=== PATIENT | male | born 1945 | race Caucasian/White ===

== ENCOUNTER 2022-05-13 11:25 | Emergency (ER) | payer MEDICARE, SELFPAY ==
[2022-05-13 11:38] VITALS: BP 127/70; PULSE 87; RESP 20; TEMP 35.8; O2SAT 100
--- NOTE | 2022-05-13 11:58 | ED.GENADULT ---
HPI - General Adult General Chief complaint: Extremity Problem,Nontraumatic Stated complaint: Hands Swollen/Pain Time Seen by Provider: 05/13/22 11:58 Source: patient and RN notes reviewed Mode of arrival: ambulatory Limitations: no limitations History of Present Illness HPI narrative: 76-year-old male presents to the [facility] with a swollen joint to the right hand. States that it feels like his normal gout flare. Tried calling his kidney transplant team at [place] and they told him to come to the [facility]. Pain, redness and swelling noted to the right second MCP joint Related Data Home Medications Medication Instructions Recorded Confirmed finasteride 5 mg tablet 5 mg PO DAILY 05/13/22 05/13/22 hydralazine 25 mg tablet 25 mg PO DAILY 05/13/22 05/13/22 mycophenolate sodium 360 mg 360 mg PO DAILY 05/13/22 05/13/22 tablet,delayed release prednisone 5 mg tablet 5 mg PO DIRECTED 05/13/22 05/13/22 pyridoxine (vitamin B6) 50 mg 50 mg PO DAILY 05/13/22 05/13/22 tablet tacrolimus 1 mg tablet,extended 1 mg PO DAILY 05/13/22 05/13/22 release 24 hr (Envarsus XR) tamsulosin 0.4 mg capsule 0.4 mg PO DAILY 05/13/22 05/13/22 Allergies Allergy/AdvReac Type Severity Reaction Status Date / Time No Known Allergies Allergy Unverified 02/15/13 14:04 Review of Systems Review of Systems: All systems reviewed & are unremarkable except as noted in HPI and below Constitutional: Constitutional: Reports no additional constitutional complaints, Denies chills and Denies fever(s) Eyes: Eyes: Reports no additional eye complaints ENT: Reports system reviewed and no additional complaints, except as documented Cardiovascular: Cardiovascular: Reports no additional cardiovascular complaints Respiratory: Respiratory: Reports no additional respiratory complaints Gastrointestinal: Gastrointestinal: Reports no additional gastrointestinal complaints Musculoskeletal: Musculoskeletal: Reports as per HPI Integumentary/Breasts: Skin/Breast: Reports as per HPI Neurologic: Reports system reviewed and no additional complaints, except as documented Psychiatric: Psychiatric: Reports no additional psychiatric complaints Allergic/Immunologic: Allergic/Immunologic: Reports no additional allergic/immunologic complaints [facility] Surgical History Surgical History (Updated 05/13/22 @ 20:10 by Pricila A. Topper, WARES SORTER) Kidney transplanted Social History Social History (Updated 05/13/22 @ 20:10 by Pricila Garcia APRN) Gender identity (if verbalized by the patient): Male Comments At the time of my signature, I reviewed and agree with the nursing past medical, surgical, social, and family history. There is no relevant family history pertinent to the patient complaint. Exam Const: General: no acute distress, alert, ill appearing chronically; not acutely and well nourished Nutritional Appearance: well nourished Orientation/consciousness: patient oriented x3 Limitations: no limitations HENMT: Head: normal to inspection Ears: external ears normal Eyes: General: appearance normal, both eyes and all related structures Pupils: Equal, round and reactive pupils present Neck: Neck: normal visual inspection, no lymphadenopathy and no meningeal signs Chest: Chest palpation & inspection: normal inspection of the chest Resp: Effort & Inspection: normal respiratory effort and no use of accessory muscles Auscultation: clear to auscultation bilaterally and no wheezes Cardio: Rate: regular rate Rhythm: regular rhythm Skin: General skin exam: normal color Rashes: no rashes Wounds: no wounds Other: Redness noted to the second MCP right hand, swelling, tenderness. Neuro: General: patient oriented x3, moves all extremities, no meningeal signs and no focal motor deficits Cranial nerves: Yes Equal, round and reactive pupils present Speech: normal speech Gait exam (Neuro): Normal gait present Extrem: General: normal to inspection, full ROM an
== END 2022-05-13 12:20 | disposition home or self-care (01) ==
PROVIDERS: Emergency Provider Nurse Practitioner
DX: M10.9 Gout, unspecified (principal); Z94.0 Kidney transplant status
CPT/HCPCS: 99213; G0463

== ENCOUNTER 2022-05-20 11:49 | Emergency (ER) | payer MEDICARE, SELFPAY ==
[2022-05-20 12:09] VITALS: BP 129/63; PULSE 69; RESP 16; TEMP 36.2; O2SAT 100
--- NOTE | 2022-05-20 12:39 | ED.EXTPRO ---
HPI - Extremity Problem General Chief complaint: Extremity Injury, Upper Stated complaint: felicia wrist pain Time Seen by Provider: 05/20/22 12:39 Source: patient, RN notes reviewed and old records reviewed Mode of arrival: ambulatory Limitations: no limitations History of Present Illness HPI Narrative: 76-YEAR-OLD MALE RETURNS TO THE [facility] WITH COMPLAINTS OF BILATERAL WRIST PAIN. DIAGNOSED WITH GOUT 1 WEEK AGO, DID NOT FOLLOW UP WITH HIS KIDNEY TRANSPLANT TEAM. No redness or swelling noted. States he woke up with the pain. No treatment prior to arrival. Unknown lab values. Does not have a primary care provider Related Data Home Medications Medication Instructions Recorded Confirmed finasteride 5 mg tablet 5 mg PO DAILY 05/13/22 05/20/22 hydralazine 25 mg tablet 25 mg PO DAILY 05/13/22 05/20/22 mycophenolate sodium 360 mg 360 mg PO DAILY 05/13/22 05/20/22 tablet,delayed release prednisone 5 mg tablet 5 mg PO DIRECTED 05/13/22 05/20/22 pyridoxine (vitamin B6) 50 mg 50 mg PO DAILY 05/13/22 05/20/22 tablet tacrolimus 1 mg tablet,extended 1 mg PO DAILY 05/13/22 05/20/22 release 24 hr (Envarsus XR) tamsulosin 0.4 mg capsule 0.4 mg PO DAILY 05/13/22 05/20/22 Allergies Allergy/AdvReac Type Severity Reaction Status Date / Time No Known Allergies Allergy Verified 05/20/22 12:15 Review of Systems Review of Systems: All systems reviewed & are unremarkable except as noted in HPI and below Constitutional: Constitutional: Reports no additional constitutional complaints, Denies chills and Denies fever(s) Eyes: Eyes: Reports no additional eye complaints ENT: Reports system reviewed and no additional complaints, except as documented Cardiovascular: Cardiovascular: Reports no additional cardiovascular complaints Respiratory: Respiratory: Reports no additional respiratory complaints Gastrointestinal: Gastrointestinal: Reports no additional gastrointestinal complaints Musculoskeletal: Musculoskeletal: Reports as per HPI and Reports arthralgias (Bilateral wrists) Integumentary/Breasts: Skin/Breast: Reports system reviewed and no additional complaints, except as docu Neurologic: Reports system reviewed and no additional complaints, except as documented Psychiatric: Psychiatric: Reports no additional psychiatric complaints Allergic/Immunologic: Allergic/Immunologic: Reports no additional allergic/immunologic complaints [facility] Surgical History Surgical History Kidney transplanted Social History Social History Gender identity (if verbalized by the patient): Male Comments At the time of my signature, I reviewed and agree with the nursing past medical, surgical, social, and family history. There is no relevant family history pertinent to the patient complaint. Exam Const: General: no acute distress, alert, ill appearing chronically and well nourished Nutritional Appearance: well nourished Orientation/consciousness: patient oriented x3 Limitations: no limitations HENMT: Head: normal to inspection Ears: external ears normal Eyes: General: appearance normal, both eyes and all related structures Conjunctivae: conjunctivae normal Pupils: Equal, round and reactive pupils present Neck: Neck: normal visual inspection, no lymphadenopathy and no meningeal signs Chest: Chest palpation & inspection: normal inspection of the chest Resp: Effort & Inspection: normal respiratory effort and no use of accessory muscles Auscultation: clear to auscultation bilaterally, no crackles, no rales, no rhonchi and no wheezes Cardio: Rate: regular rate Rhythm: regular rhythm Skin: General skin exam: normal color Rashes: no rashes Wounds: no wounds Neuro: General: patient oriented x3, moves all extremities, no meningeal signs and no focal motor deficits Cranial nerves: Yes Equal, round and reactive pupils present
== END 2022-05-20 12:54 | disposition home or self-care (01) ==
PROVIDERS: Emergency Provider Nurse Practitioner
DX: M19.032 Primary osteoarthritis, left wrist (principal); M19.031 Primary osteoarthritis, right wrist; Z94.0 Kidney transplant status; E78.00 Pure hypercholesterolemia, unspecified; N40.0 Benign prostatic hyperplasia without lower urinary tract symptoms; M10.9 Gout, unspecified; Z90.5 Acquired absence of kidney
CPT/HCPCS: 99212; G0463

== ENCOUNTER 2022-05-24 11:28 | Inpatient (IN) | payer MEDICARE, SELFPAY ==
[2022-05-24] VITALS (18 sets, daily range): BP systolic 113–145; BP diastolic 51–118; PULSE 60–78; RESP 11–20; TEMP 35.8–36.5; O2SAT 96–100
--- NOTE | ~2022-05-24 | US_ITS ---
EXAMINATION: US renal BI DATE: 05/25/2022 08:50 INDICATION: Acute renal insufficiency TECHNIQUE: Multiple ultrasound grayscale images of the kidneys were obtained. COMPARISON: None. FINDINGS: The right kidney measures 7.0 x 4.1 x 4.1 cm. And demonstrates increased cortical echogenicity There are multiple small anechoic cysts in the right kidney the largest measuring 1.8 cm in maximal diamete r. The left kidney is unable to be visualized due to large amount of shadowing bowel gas. The left si de of the abdomen. A right pelvic transplant kidney measures 10.9 x 4.9 x 5.4 cm with normal cortical echogenicity. There is mild hydronephrosis of the transplant kidney. No renal stones identified. Pro minent distention of the bladder which measures approximately 14 x 10.5 x 9.0 cm. Prostatomegaly jason uring at least 4.6 x 3.9 cm. IMPRESSION: 1. Mild hydronephrosis at the right pelvic transplant kidney along with prominent distention of the bladder, both findings which could be secondary to lateral with obstruction from the enlarged prostat e.. 2. A few cysts in an atrophic anvik right kidney. The anvik left kidney is not visualized. Reviewed, dictated and finalized at location B. IMPRESSION: 1. Mild hydronephrosis at the right pelvic transplant kidney along with promin ent distention of the bladder, both findings which could be secondary to latera l with obstruction from the enlarged prostate.. 2. A few cysts in an atrophic anvik right kidney. The anvik left kidney is no t visualized.
--- NOTE | ~2022-05-24 | CT_ITS ---
EXAMINATION: CT diagnostic chest wo con DATE: 05/24/2022 20:41 INDICATION: lung mass TECHNIQUE: Computed tomography (CT) of the chest was performed without intravenous contrast. Automate d exposure control and iterative reconstruction technique were employed. The dose-length product was 145.04 mGy-cm. COMPARISON: Chest x-ray, same date. FINDINGS: CHEST: Thoracic aorta: Mild ectasia and arch calcification. Lung parenchyma and airways: Calcified right middle lobe granulomas. Irregular somewhat nodular opaci ty along the superior margin of the right major fissure, corresponding with the opacity in the prior radiograph, likely representing scar or a lymph node. Thoracic inlet, axillae and chest wall: No thyroid or soft tissue mass. No axillary lymphadenopathy. Mediastinum: No mass or lymphadenopathy. Heart and pericardium: Normal heart size. No pericardial effusion. Coronary artery calcifications: Moderate. Pleura: No effusion or mass. Upper abdomen: Cholecystectomy. Bilateral renal atrophy with multiple renal cysts and lesions that ar e too small to characterize. Thoracic bones: No acute osseous finding in the chest. IMPRESSION: No acute thoracic process detected. No suspicious pulmonary nodule or mass detected. Reviewed, dictated and finalized at location K. IMPRESSION: No acute thoracic process detected. No suspicious pulmonary nodule or mass dete cted.
--- NOTE | ~2022-05-24 | XR_ITS ---
XR chest 2V DATE: 05/24/2022 13:05 INDICATION: Weight loss, weakness TECHNIQUE: PA and lateral views COMPARISON: None FINDINGS: Normal heart size. Mild aortic tortuosity. No hilar or mediastinal enlargement. There is bilateral hyperinflation consistent with chronic obstructive pulmonary disease. There is an irregular up to approximately 1.5 cm density overlying the right upper lung; CT thorax is recommended to evaluate for possible lung mass lesion/cancer. There is a radiopaque suture in the subcutaneous adipose tissues of the upper anterior right abdomina l wall. Degenerative spurring of the thoracic spine. IMPRESSION: Approximately 1.5 cm irregular opacity overlying right upper lung; recommend CT thorax to evaluate for possible lung mass/carcinoma Reviewed, dictated and finalized at location A.
--- NOTE | 2022-05-24 11:57 | ECG_ITS ---
Measurements Intervals Agency Rate: 68 P: 92 WA: 174 QRS: 74 QRSD: 110 T: 137 QT: 462 QTc: 494 Interpretive Statements SINUS RHYTHM BORDERLINE ST-T WAVE ABNORMALITY- DIFFUSE LEADS BASELINE ARTIFACT- I, II, III, AVR, AVL, AVF, V1-V4 BORDERLINE ECG NO PRIOR ECG FOR COMPARISON Electronically Signed On 05-25-2022 6:17:00 CDT by Erasmo Meeks D.O.
--- NOTE | 2022-05-24 13:55 | PC.NURSE ---
attempted to call patient to draw blood, patient was not found in waiting room
[2022-05-24 14:31] LABS: Alanine Aminotransferase 19 U/L (6-50); Albumin Level 4.2 g/dL (3.5-5.1); Alkaline Phosphatase 93 U/L (38-126); Anion Gap 19 mmol/L (8-16); Aspartate Amino Transferase 23 U/L (17-59); Bilirubin,Total 0.7 mg/dL (0.2-1.3); Blood Urea Nitrogen 49 mg/dL (9-20); Carbon Dioxide 8 mmol/L (22-30); Chloride 118 mmol/L (98-107); Estimated CRCL calculation 9 ml/min; Estimated Glomerular Filt Rate 10; Glucose 85 mg/dL (65-110); Potassium 3.1 mmol/L (3.4-5.0); Sodium 145 mmol/L (137-145)
[2022-05-24 14:32] LABS: Basophils Absolute Auto 0.1 K/mm3 (0.0-0.1); Basophils Percent Auto 0.5 % (0.2-1.2); Eosinophils Absolute Auto 0.2 K/mm3 (0-0.3); Eosinophils Percent Auto 1.3 % (0-4.4); Hematocrit 31.1 % (42.0-52.0); Hemoglobin 10.3 g/dL (14.0-18.0); Immature Granulocyte Absolute 0.23 K/mm3 (0.00-0.031); Lymphocytes Absolute Auto 0.84 K/mm3 (0.9-3.2); Lymphocytes Percent Auto 7.1 % (18.3-44.2); Mean Corpuscular HGB Conc 33.1 g/dl (32-36); Mean Corpuscular Hemoglobin 29.4 pg (26-34); Mean Corpuscular Volume 88.9 fl (80-100); Mean Platelet Volume 10.1 fl (7.4-10.4); Monocytes Absolute Auto 0.7 K/mm3 (0.1-0.6); Neutrophils Absolute Auto 9.8 K/mm3 (1.3-6.7); Neutrophils Percent Auto 83.1 % (45.5-73.1); Platelet Count Result 240 k/mm3 (150-375); White Blood Count 11.8 K/mm3 (4.5-10.0)
--- NOTE | 2022-05-24 15:44 | ED.WEAKNESS ---
HPI - Weakness General Chief complaint: Weakness Stated complaint: weight loss, body aches Time Seen by Provider: 05/24/22 15:30 History of Present Illness HPI Narrative: Pt presents with generalized weakness and weight loss. Pt says he was in the [facility] traveling and walked all over in November without problems but now can't walk across the room. Pt denies CP. Pt had a renal transplant several years ago and [facility]. Pt not sure of the name of his transplant surgeon. Pt denies black or bloody stools. Related Data Home Medications Medication Instructions Recorded Confirmed finasteride 5 mg tablet 5 mg PO DAILY 05/13/22 05/20/22 hydralazine 25 mg tablet 25 mg PO DAILY 05/13/22 05/20/22 mycophenolate sodium 360 mg 360 mg PO DAILY 05/13/22 05/20/22 tablet,delayed release prednisone 5 mg tablet 5 mg PO DIRECTED 05/13/22 05/20/22 pyridoxine (vitamin B6) 50 mg 50 mg PO DAILY 05/13/22 05/20/22 tablet tacrolimus 1 mg tablet,extended 1 mg PO DAILY 05/13/22 05/20/22 release 24 hr (Envarsus XR) tamsulosin 0.4 mg capsule 0.4 mg PO DAILY 05/13/22 05/20/22 Allergies Allergy/AdvReac Type Severity Reaction Status Date / Time No Known Allergies Allergy Verified 05/24/22 15:03 Review of Systems Review of Systems: All systems reviewed & are unremarkable except as noted in HPI and below PMFSH Surgical History Surgical History Kidney transplanted Social History Social History Gender identity (if verbalized by the patient): Male Exam Const: General: healthy appearing and no acute distress Nutritional Appearance: well nourished Orientation/consciousness: patient oriented x3 Limitations: no limitations Chest: Chest palpation & inspection: normal inspection of the chest Resp: Effort & Inspection: normal respiratory effort Auscultation: clear to auscultation bilaterally Cardio: Rate: regular rate Rhythm: regular rhythm GI: GI Palp: Yes Soft to palpation Auscultation: normal bowel sounds Skin: General skin exam: normal color Rashes: no rashes Neuro: General: patient oriented x3 and moves all extremities Cranial nerves: Yes Nystagmus not present Speech: normal speech Extrem: General: normal to inspection and no clubbing, cyanosis or edema Psych: Mental Status: mental status grossly normal Affect: normal affect Attitude: cooperative Course Course Emergency Course: discussed with dr hutchins, transplant surgeon [facility], said will accept but no b eds for 3-5 dasy, said hydrated gently and IV antiviotics and admit here until bed available. Vital Signs Vital signs: Vital Signs Temperature 96.5 F L 05/24/22 11:53 Pulse Rate 74 05/24/22 11:53 Respiratory Rate 16 05/24/22 11:53 Blood Pressure 145/118 H 05/24/22 11:53 Pulse Oximetry 100 05/24/22 11:53 Oxygen Delivery Room Air 05/24/22 11:53 Temperature 97.7 F 05/24/22 15:06 Pulse Rate 62 05/24/22 20:06 Respiratory Rate 14 05/24/22 20:06 Blood Pressure 113/51 L 05/24/22 18:42 Pulse Oximetry 99 05/24/22 20:06 Oxygen Delivery Room Air 05/24/22 14:58 MDM - Weakness Lab Data Result diagrams: 05/24/22 14:11 05/24/22 14:11 Labs: Lab Results 05/24/22 05/24/22 05/24/22 Range/Units 14:11 14:11 14:11 WBC 11.8 H (4.5-10.0) K/mm3 RBC 3.50 L (4.6-6.20) M/mm3 Hgb 10.3 L (14.0-18.0) g/dL Hct 31.1 L (42.0-52.0) % MCV 88.9 (80-100) fl MCH 29.4 (26-34) pg MCHC 33.1 (32-36) g/dl RDW 19.0 H (11.5-14.5) % Plt Count 240 (150-375) k/mm3 MPV 10.1 (7.4-10.4) fl Immature Gran % (Auto) 2.0 H (0-0.5) % Neut % (Auto) 83.1 H (45.5-73.1) % Lymph % (Auto) 7.1 L (18.3-44.2) % Meigs % (Auto) 6.0 (2.6-8.5) % Eos % (Auto) 1.3 (0-4.4) % Baso % (Auto) 0.5 (0.2-1.2) % Lymph # (Auto) 0.84 L (0.9-3.2) K/mm3 Meigs
[2022-05-24 16:40] LABS: Appearance Urine Clear (Clear); Bilirubin Urine Negative (Negative); Blood Urine 2+ (Negative); Color Urine Yellow (Yellow); Glucose Urine UA Negative (Negative); Ketones Urine Trace mg/dL (Negative); Leukocyte Esterase Ur 3+ LEU/UL (Negative); Nitrate Urine Negative (Negative); Protein Urine 2+ mg/dL (Negative); Urobilinogen Urine 0.2 mg/dL (<2.0)
[2022-05-24 16:48] LABS: Mucus Urine Rare /lpf; Squamous Epithelial Cell Urine Rare /hpf (Few); WBC Urine >75 /hpf
[2022-05-24 16:49] LABS: Add Urine Microscopic? YES
[2022-05-24] MEDS: cefTRIAXone 2 GM in SODIUM CHLORIDE 0.9% IV 100 ML 200 ML IVPB (17:53)
--- NOTE | 2022-05-24 20:09 | PM.IMHP ---
H&P: HPI History of Present Illness Date/Time: 05/24/22 20:09 Chief Complaint: Weakness Narrative: 76-year-old male with past medical history significant for renal transplant done at [facility] several years ago, hypertension, BPH is presenting with weakness and progressively worsening weight loss over the last few weeks. Patient states he has had a runny nose, sore throat and has not felt well over the last few days. His appetite has been somewhat decreased during this time period. Denies any chest pain or shortness of breath. No nausea vomiting or diarrhea. No fevers or chills. No sick contacts or recent travel. He states he gets his creatinine checked once a month but does not follow these numbers and is not sure what his baseline is. He states he last took his tacrolimus May 24, 2022 in the a.m. In the ER, He was found to have a significant acute kidney injury with a creatinine of 5.7 and a BUN of 49, unknown baseline. He also had an anemia with a hemoglobin of 10.3, also no known baseline. White blood cell count was 11.8. He had mild hypokalemia with a potassium of 3.1. urinalysis was done and was positive for protein, blood, leuk esterase and significant white blood cells. There were rare squamous epithelial cells and was negative for nitrates. Urine culture is pending. Chest x-ray showed a 1.5 cm opacity in the right upper lung concerning for lung mass. Therefore a CT of the chest was ordered and showed no pulmonary nodule or mass. There was an irregular somewhat nodular opacity along the superior margin of the right major fissure corresponding with the opacity seen on the chest x-ray that was thought to be secondary to a scar or a lymph node. Of note, the patient made several visits to [facility] with joint pain in his wrists. He was concerned it was gout and requested gout medication, however, he did not have a known creatinine and so he was only given colchicine 0.6 mg x 1 dose and was told to continue his home prednisone daily. He was placed on a waiting list at [facility] however they do not have a bed available so he will be admitted here. The renal transplant team recommended Rocephin with gentle IV fluid hydration for the patient's acute kidney injury noted in our ER and they will attempt to transfer the patient to their facility as soon as possible. Review of Systems Review of Systems: 12 point review of systems was assessed and was negative except as noted in the HPI [facility] Past Medical History Medical History (Updated 05/25/22 @ 03:16 by Keena Barajas DO) Arthritis of both wrists BPH (benign prostatic hyperplasia) Gout Hypertension Renal failure Surgical History Surgical History (Updated 05/25/22 @ 03:11 by Keena Barajas DO) Kidney transplanted Renal transplant, status post Social History Social History Smoking status: Never smoker Alcohol intake: never Has the Lack of Transportation Kept You From Medical Appointments or From Getting Medications?: No Within the Past 12 Months, Were You Worried Whether Your Food Would Run Out Before You Got Money to Buy More?: Never True What is Your Housing Situation Today?: I Have Housing Are You Worried That in the Next 2 Months, You May Not Have Your Own Housing to Live In?: No Do You Have Trouble Paying Your Heating Or Electricity Bill?: No Do You Have Trouble Paying For Medicines?: No Are You Currently Unemployed and Looking for Work?: No Highest Level of Education Completed: High School Diploma/GED Do You Have Trouble With Childcare or the Care of a Family Member?: No Gender identity (if verbalized by the patient): Male Spiritual care concerns: No Meds Home Medications and Allergies Home Medications Medication Instructions Recorded Confirmed Type finasteride 5 mg tablet 5 mg PO DAILY 05/13/22 05/24/22 History hydralazine 25 mg tablet 25 mg PO DAILY
[2022-05-24 20:29] LABS: SARS-CoV-2 RNA PCR Negative
[2022-05-24 20:41] LABS: Hemoglobin A1C < 4.0 % (<5.7)
[2022-05-24 21:56] LABS: Troponin I 0.044 ng/mL (0.000-0.034)
[2022-05-24] MEDS: SODIUM CHLORIDE 0.45% 1,000 ML 75 ML IV CONT (22:12)
[2022-05-24 22:43] LABS: Procalcitonin 0.3 ng/mL
[2022-05-24 23:35] LABS: Vitamin D 25 Hydroxy 24.4 ng/mL
--- NOTE | 2022-05-25 | ECHO_ITS ---
Patient Info Name: Eusebio Brooks Age: 76 years : 1945 Gender: Male Ht: 70 in Wt: 130 lbs BSA: 1.69 m2 HR: 59 bpm BP: 145 / 61 mmHg Heart Rhythm: Sinus Rhythm Exam Date: 05/25/2022 2:49 PM Exam Location: [facility] Pulmonary Patient Status: Inpatient Admit Date: 05/24/2022 Staff Ordering Physician: Deandre De Leon MD Project Management Professor: Ronan Pastrana, CHAKA, RT Attending Provider: Mellissa Lange MD Exam Type: CA echo doppler color flow Study Info Indications R06.00 - Dyspnea, unspecified Complete two-dimensional, color flow and Doppler transthoracic echocardiogram is performed. Strain analysis performed. Summary 1. Complete two-dimensional, color flow and Doppler transthoracic echocardiogram is performed. 2. Normal left ventricular size with borderline concentric hypertrophy. Good systolic function of all segments. Ejection fraction is calculated to be 60%. Normal diastolic function. Normal left ventricular strain pattern at -20%. 3. The aortic valve is not well seen but appears sclerotic. Cannot exclude a bicuspid aortic valve on this study. There is mild to moderate eccentric aortic valve regurgitation. 4. There is mild tricuspid valve regurgitation. 5. No pulmonary hypertension, estimated pulmonary arterial systolic pressure is 32 mmHg. 6. Generous sinus of Valsalva at 3.8 cm. 7. Normal sinus rhythm. Left Ventricle Left ventricular chamber dimension is normal. Left ventricular systolic function is normal, estimated at Empty. There is mildly increased left ventricular wall thickness. Left ventricular septal wall motion is normal. The left ventricular diastolic function is normal. Global longitudinal strain is normal at -20 %. Right Ventricle Right ventricular chamber dimension is normal. Right ventricular systolic function is normal. Left Atria Left atrial chamber dimension is normal. Right Atria Right atrial chamber dimension is normal. Aortic Valve The aortic valve is probable trileaflet. There is mild aortic valve sclerosis. There is no aortic valve stenosis. The aortic valve is not well seen but appears sclerotic. Cannot exclude a bicuspid aortic valve on this study. There is mild to moderate eccentric aortic valve regurgitation. Pulmonic Valve The pulmonic valve is normal. There is no pulmonic valve stenosis. There is trace pulmonic regurgitation. Mitral Valve The mitral valve has normal leaflets. There is no mitral valve stenosis. There is trace mitral valve regurgitation. Tricuspid Valve The tricuspid valve leaflets are normal. There is no significant tricuspid valve stenosis. There is mild tricuspid valve regurgitation. No pulmonary hypertension, estimated pulmonary arterial systolic pressure is 32 mmHg. Pericardium/Pleural The pericardium appears normal. There is no pericardial effusion. Inferior Vena Cava Normal inferior vena cava with >50% collapse upon inspiration consistent with Empty right atrial pressure, 10 mmHg. Aorta The aortic root size at the sinus of Valsalva is borderline dilated. The prox ascending aorta size is normal. Left Ventricular Outflow Tract Name Value Normal LVOT 2D LVOT Diameter 2.0 cm
[2022-05-25 00:33] LABS: Magnesium 0.6 mg/dL (1.6-2.3); Phosphorus 2.7 mg/dL (2.5-4.5)
[2022-05-25] MEDS: POTASSIUM CHLORIDE 20 MEQ TABLET 40 MEQ PO ×2 (04:13→18:04)
[2022-05-25 06:00] VITALS: BP 145/61; PULSE 61; RESP 20; TEMP 36.8; O2SAT 100
[2022-05-25] MEDS: ACETAMINOPHEN 325 MG TABLET 650 MG PO ×2 (06:03→13:07)
[2022-05-25 06:23] LABS: Basophils Absolute Auto 0.1 K/mm3 (0.0-0.1); Basophils Percent Auto 0.5 % (0.2-1.2); Eosinophils Absolute Auto 0.2 K/mm3 (0-0.3); Eosinophils Percent Auto 2.2 % (0-4.4); Immature Granulocyte Absolute 0.13 K/mm3 (0.00-0.031); Immature Granulocyte Percent A 1.2 % (0-0.5); Lymphocytes Percent Auto 5.4 % (18.3-44.2); Mean Corpuscular HGB Conc 33.3 g/dl (32-36); Mean Corpuscular Hemoglobin 28.4 pg (26-34); Mean Corpuscular Volume 85.1 fl (80-100); Mean Platelet Volume 9.8 fl (7.4-10.4); Monocytes Absolute Auto 0.8 K/mm3 (0.1-0.6); Monocytes Percent Auto 7.2 % (2.6-8.5); Neutrophils Absolute Auto 9.2 K/mm3 (1.3-6.7); Neutrophils Percent Auto 83.5 % (45.5-73.1); Platelet Count Result 182 k/mm3 (150-375); Red Blood Count 2.82 M/mm3 (4.6-6.20); Red Cell Distribution Width 18.2 % (11.5-14.5)
[2022-05-25 06:53] LABS: Alanine Aminotransferase 14 U/L (6-50); Alkaline Phosphatase 65 U/L (38-126); Anion Gap 18 mmol/L (8-16); Aspartate Amino Transferase 15 U/L (17-59); Bilirubin,Total 0.3 mg/dL (0.2-1.3); Blood Urea Nitrogen 45 mg/dL (9-20); Calcium 5.4 mg/dL (8.4-10.2); Carbon Dioxide 8 mmol/L (22-30); Chloride 118 mmol/L (98-107); Estimated CRCL calculation 10 ml/min; Estimated Glomerular Filt Rate 12; Glucose 92 mg/dL (65-110); Potassium < 2.0 mmol/L (3.4-5.0); Sodium 144 mmol/L (137-145)
[2022-05-25 06:55] LABS: Influenza A QL RT-PCR Negative (Negative); Influenza B QL RT-PCR Negative (Negative)
[2022-05-25] MEDS: MAGNESIUM SULF 2 GM/WATER 50ML 2 GM/50 ML BAG IVPB ×2 (08:13→18:04)
[2022-05-25] MEDS: CYANOCOBALAMIN INJ 1,000 MCG/ML VIAL 1000 MCG IM (08:56)
[2022-05-25] MEDS: PYRIDOXINE HCL 50 MG TABLET PO (08:56)
[2022-05-25] MEDS: predniSONE 5 MG TABLET PO (08:56)
[2022-05-25] MEDS: TAMSULOSIN HCL 0.4 MG CAPSULE PO (08:56)
[2022-05-25] MEDS: FINASTERIDE 5 MG TABLET PO (08:57)
[2022-05-25] MEDS: KCL 20 MEQ/SW 100 ML 100 ML 50 MEQ IVPB (09:08)
--- NOTE | 2022-05-25 10:45 | PM.IMPN ---
Progress Note: A&P Assessment and Plan (1) Acute kidney injury: Code(s): N17.9 - Acute kidney failure, unspecified Status: Acute Assessment and Plan: Creat 5.7/BUN 49 on admission. Unsure of patient's baseline creatinine. Consider prerenal versus obstructive uropathy from longstanding BPH vs UTI vs progressive failure after transplant. He has had progressive weight loss for unclear reasons as well. Plan is for transfer to [place] on beds available. Continue IV fluids. Bladder is not palpable but will check a renal ultrasound. Nephrology consulted. Monitor urine output. Continue Rocephin. Request old records. Urine studies ordered. (2) Hypokalemia: Code(s): E87.6 - Hypokalemia Status: Acute Assessment and Plan: Potassium now <2.0. Probably related to the hypomag at 0.6. Related to poor oral intake? Losing potassium in urine? Replace potassium and Mag. Follow closely. Place on tele. Check lytes (3) Elevated troponin: Code(s): R77.8 - Other specified abnormalities of plasma proteins Status: Acute Assessment and Plan: Suspect this is secondary to the acute kidney injury. No CP but does have SOB. EKG reviewed. Place on tele. Check Echo. (4) Metabolic acidosis: Code(s): E87.20 - Acidosis, unspecified Status: Acute Assessment and Plan: AG metabolic acidosis. Related to BRIAN. Could explain his weight loss. Normally acidosis makes potassium higher. Nephrology consulted. Will defer to nephrology. May need HD. (5) Acute UTI: Code(s): N39.0 - Urinary tract infection, site not specified Status: Acute Assessment and Plan: UA noted. UCx and BCx collected. Continue Rocephin. Follow up on culture results. (6) Hypomagnesemia: Code(s): E83.42 - Hypomagnesemia Status: Acute Assessment and Plan: Mag level low. Replace. Repeat labs later today and continue to replace. (7) Hypocalcemia: Code(s): E83.51 - Hypocalcemia Status: Acute Assessment and Plan: Calcium noted. Corrected for low albumin still showing low calcium. Will replace and follow (8) Renal transplant, status post: Code(s): Z94.0 - Kidney transplant status Status: Chronic Assessment and Plan: As above. Anticipate transfer to [place] so patient can be cared for by his transplant team there, on the waiting list (9) Hypertension: Code(s): I10 - Essential (primary) hypertension Status: Chronic Assessment and Plan: BP noted and stable. He does not take hydralazine since it has been causing a drop in BP. Will hold this. Avoid nephrotoxic agents. (10) BPH (benign prostatic hyperplasia): Code(s): N40.0 - Benign prostatic hyperplasia without lower urinary tract symptoms Status: Chronic Assessment and Plan: Check bladder scan and place [place] if urine retention noted. Flomax resumed (11) Weakness: Code(s): R53.1 - Weakness Status: Acute Assessment and Plan: Likely 2/2 BRIAN and electrolyte abnormalities. Influenza and COVID negative. Procal 0.3. Monitor fluid status and creat closely. (12) Weight loss: Code(s): R63.4 - Abnormal weight loss Status: Acute Assessment and Plan: Unsure of etiology but appears to have poor oral intake. Monitor (13) B12 deficiency: Code(s): E53.8 - Deficiency of other specified B group vitamins Status: Acute Assessment and Plan: B12 190. Replace weekly x4 then monthly. Plan DVT prophylaxis with SCDs GI prophylaxis not indicated Code status full code Subjective Date/time seen: 05/25/22 10:45 Interval history: 76yo male with HTN, BPH and renal failure s/p renal transplant here for weakness, weight loss and myalgias. Patient slept poorly last night. Denies shortness of breath does have dyspnea exertion walking back chest. No abdominal pain does have cough prod
[2022-05-25 11:06] LABS: Potassium 2.3 mmol/L (3.4-5.0)
[2022-05-25] MEDS: SODIUM CHLORIDE 0.45% 1,000 ML 75 ML IV CONT (11:39)
[2022-05-25 12:00] VITALS: PULSE 66
[2022-05-25 12:23] VITALS: BMI 18.6
[2022-05-25] MEDS: CALCIUM CARBONATE (OSCAL) 500 MG TABLET PO ×2 (13:08→16:38)
[2022-05-25 14:00] VITALS: BP 138/70; PULSE 62; RESP 20; TEMP 36.8; O2SAT 100
[2022-05-25 14:23] LABS: Creatinine Urine 38.2 mg/dL
[2022-05-25 14:31] LABS: Sodium Urine Random 29 meq/L
--- NOTE | 2022-05-25 14:49 | PCPTNOTE ---
1450. Patient getting ECHO done. Physical therapy will check on tomorrow.
[2022-05-25 15:39] LABS: Albumin Level 3.1 g/dL (3.5-5.1); Anion Gap 18 mmol/L (8-16); Blood Urea Nitrogen 42 mg/dL (9-20); CRP 3.6 mg/dL (<1.0); Calcium 5.7 mg/dL (8.4-10.2); Carbon Dioxide 9 mmol/L (22-30); Chloride 117 mmol/L (98-107); Creatine Kinase 238 U/L (55-170); Estimated CRCL calculation 11 ml/min; Estimated Glomerular Filt Rate 12; Glucose 126 mg/dL (65-110); Phosphorus 2.9 mg/dL (2.5-4.5); Potassium 2.2 mmol/L (3.4-5.0); Sodium 144 mmol/L (137-145)
--- NOTE | 2022-05-25 15:47 | PHAR ---
VERIFIED FROM PATIENTS BOTTLE RX [id number] [facility] M2 PEACH OBLONG TABLET
--- NOTE | 2022-05-25 15:49 | PHAR ---
DRUG NAME: JENAE JEFF INGREDIENTS: TACROLIMUS -- 1 MG RELATED DOCUMENTS: DRUGDEX EVALUATIONS - TACROLIMUS COLOR: WHITE TO OFF-WHITE SHAPE: OVAL IMPRINT: TCS , 1 , TCS , 1 FORM: ORAL TABLET, EXTENDED RELEASE
[2022-05-25 16:00] VITALS: PULSE 57
--- NOTE | 2022-05-25 16:48 | PM.CNNEP ---
Assessment and Plan Assessment and plan (1) Acute kidney injury: Code(s): N17.9 - Acute kidney failure, unspecified Status: Acute Assessment and Plan: the patient has BRINA. I suspect that most of this is dehydration. he has chronic loose stools and hasn't been eating well. his urine sodium is somewhat low but FeNa is nonprerenal. He has a UTI which could add to the injury if systemic. blood cultures are NGTD. 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 acute rejection is unlikely at this stage of the transplant. Tacro toxicity is possible but unlikely this far into the trpt as well. his dose has been the same for years he says. obtruction is always a possiblity. u/s shows mild hydro but he has no vesicoureteral lab so ther will be hydro frequently. the bladder distension is a concern. since his creatinine is improving will continue fluids but have see the patient at some point. he is already on tamsulosin and finasteride. since he has pyuria, he needs a alvarez. rhabdo is always a possiblity as well. 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 baseline creatinine is 3.7 (3) Hypocalcemia: Code(s): E83.51 - Hypocalcemia Status: Acute Assessment and Plan: possibly due to ckd and due to stool loss? (4) Hypomagnesemia: Code(s): E83.42 - Hypomagnesemia Status: Acute Assessment and Plan: probably due to stool loss. sometimes tacro does this. (5) Hypokalemia: Code(s): E87.6 - Hypokalemia Status: Acute Assessment and Plan: also due to stool loss. because calcium, mg, and K all low, any one may lead to the other two being low due to electrolyte dependant resorption enzmes in the renal tubules. will replace all and reassess. (6) Hypertension: Code(s): I10 - Essential (primary) hypertension Status: Chronic Assessment and Plan: BP is doing pretty well (7) Weakness: Code(s): R53.1 - Weakness Status: Acute Assessment and Plan: probably from a combination of poor nutrition, and recent electrolyte imbalance. (8) Acute UTI: Code(s): N39.0 - Urinary tract infection, site not specified Status: Acute Assessment and Plan: on atb. culture pending History of Present Illness Reason for Consult Consult date: 05/25/22 Chief Complaint Chief complaint: renal failure History of Present Illness Narrative: Eusebio is a very pleasant 76 yo with ESRD on HD from 9y ago to 5y ago and a [facility] trpt 5 years ago. He had no rejections or infections. however in the last 2 years or two his gfr has dropped such that his creatinine nikole to 3.7. he had a biopsy in 2019 and again in june of 2021 showing chronic allograft nephropathy, no acute rejection so immunosuppressives were not changed. he is on pdn 5, tacro 4 daily and MMF 360 bid. his baseline creatinine was 3.7 last month. he says for the last 3 months he has had fatigue. some weakness but mostly no get up and go. he has fatigue after walking a few steps. he has had good appetite. he says that he has been given diets to stay off potassium, protein, etc and is afraid to eat anything so he has lost weight. the trpt sharifa has encouraged him to cheat on his diet to gain weight. in spite of that he has become more weak. He has a GI issue leading to intermittent diarrhea. he almost never has a normal stool. he came to the ER due to progressive symptoms. he just got tired of it. he was evaluated and found to have low potassium and magnesium and elevated creatinine so was admitted. he has had no n/v. he hasn't been eating as well. Review of Systems Constitutional: Constitutional: Reports no additional constitutional
[2022-05-25 17:03] LABS: Potassium Urine Random 3.3 meq/L
[2022-05-25 20:00] VITALS: PULSE 59
[2022-05-25 22:00] VITALS: BP 131/59; PULSE 71; RESP 16; TEMP 36.2; O2SAT 100
[2022-05-25 23:12] LABS: Anion Gap 11 mmol/L (8-16); Blood Urea Nitrogen 43 mg/dL (9-20); Calcium 5.6 mg/dL (8.4-10.2); Carbon Dioxide 12 mmol/L (22-30); Chloride 120 mmol/L (98-107); Estimated CRCL calculation 11 ml/min; Estimated Glomerular Filt Rate 13; Glucose 109 mg/dL (65-110); Magnesium 1.6 mg/dL (1.6-2.3); Phosphorus 2.4 mg/dL (2.5-4.5); Potassium 2.5 mmol/L (3.4-5.0); Sodium 143 mmol/L (137-145)
[2022-05-26] VITALS (9 sets, daily range): BP systolic 125–136; BP diastolic 55–59; PULSE 53–76; RESP 16; TEMP 36.4–36.6; O2SAT 100
[2022-05-26] MEDS: POTASSIUM CHLORIDE 20 MEQ TABLET 40 MEQ PO ×2 (02:38→15:06)
[2022-05-26 07:39] LABS: Basophils Absolute Auto 0.1 K/mm3 (0.0-0.1); Basophils Percent Auto 0.4 % (0.2-1.2); Eosinophils Absolute Auto 0.3 K/mm3 (0-0.3); Eosinophils Percent Auto 2.3 % (0-4.4); Hematocrit 28.7 % (42.0-52.0); Hemoglobin 9.5 g/dL (14.0-18.0); Immature Granulocyte Absolute 0.19 K/mm3 (0.00-0.031); Immature Granulocyte Percent A 1.4 % (0-0.5); Lymphocytes Percent Auto 7.4 % (18.3-44.2); Mean Corpuscular HGB Conc 33.1 g/dl (32-36); Mean Corpuscular Volume 87.5 fl (80-100); Mean Platelet Volume 10.4 fl (7.4-10.4); Monocytes Absolute Auto 0.7 K/mm3 (0.1-0.6); Monocytes Percent Auto 5.2 % (2.6-8.5); Neutrophils Absolute Auto 11.3 K/mm3 (1.3-6.7); Neutrophils Percent Auto 83.3 % (45.5-73.1); Platelet Count Result 217 k/mm3 (150-375); Red Blood Count 3.28 M/mm3 (4.6-6.20); Red Cell Distribution Width 18.6 % (11.5-14.5); White Blood Count 13.5 K/mm3 (4.5-10.0)
[2022-05-26 07:48] LABS: Alanine Aminotransferase 14 U/L (6-50); Albumin Level 3.4 g/dL (3.5-5.1); Alkaline Phosphatase 82 U/L (38-126); Anion Gap 18 mmol/L (8-16); Aspartate Amino Transferase 17 U/L (17-59); Bilirubin,Total 0.4 mg/dL (0.2-1.3); Blood Urea Nitrogen 38 mg/dL (9-20); Calcium 6.1 mg/dL (8.4-10.2); Carbon Dioxide 11 mmol/L (22-30); Chloride 117 mmol/L (98-107); Estimated CRCL calculation 12 ml/min; Estimated Glomerular Filt Rate 14; Glucose 106 mg/dL (65-110); Magnesium 1.5 mg/dL (1.6-2.3); Phosphorus 2.4 mg/dL (2.5-4.5); Potassium 2.6 mmol/L (3.4-5.0); Sodium 146 mmol/L (137-145)
[2022-05-26] MEDS: TAMSULOSIN HCL 0.4 MG CAPSULE 0.8 MG PO (08:52)
[2022-05-26] MEDS: PYRIDOXINE HCL 50 MG TABLET PO (08:53)
[2022-05-26] MEDS: predniSONE 5 MG TABLET PO (08:53)
[2022-05-26] MEDS: FINASTERIDE 5 MG TABLET PO (08:53)
[2022-05-26] MEDS: CALCIUM CARBONATE (OSCAL) 500 MG TABLET 1000 MG PO ×3 (08:55→17:31)
[2022-05-26] MEDS: WATER IVPB (09:55)
[2022-05-26] MEDS: POTASSIUM PHOS M BASIC D BASIC IVPB (09:55)
[2022-05-26] MEDS: DEXTROSE 5% IVPB (09:55)
[2022-05-26] MEDS: ACETAMINOPHEN 325 MG TABLET 650 MG PO ×2 (11:39→22:12)
[2022-05-26 12:39] LABS: Albumin Level 3.1 g/dL (3.5-5.1); Anion Gap 16 mmol/L (8-16); Blood Urea Nitrogen 36 mg/dL (9-20); Calcium 5.8 mg/dL (8.4-10.2); Carbon Dioxide 14 mmol/L (22-30); Chloride 114 mmol/L (98-107); Estimated CRCL calculation 14 ml/min; Estimated Glomerular Filt Rate 16; Glucose 125 mg/dL (65-110); Phosphorus 2.6 mg/dL (2.5-4.5); Potassium 2.8 mmol/L (3.4-5.0); Sodium 144 mmol/L (137-145)
--- NOTE | 2022-05-26 14:57 | PM.PNNEP ---
Progress Note: A&P Assessment and Plan (1) Acute kidney injury: Code(s): N17.9 - Acute kidney failure, unspecified Status: Acute Assessment and Plan: patient has acute kidney injury. Probably dehydrated. His creatinine is improving. It is down to 3.7 today. We can reduce the IV fluids. 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 Baseline creatinine to 3.7 (3) Hypocalcemia: Code(s): E83.51 - Hypocalcemia Status: Acute Assessment and Plan: calcium level is a little bit low. Phosphorus is low as well. Will check a vitamin-D level (4) Hypomagnesemia: Code(s): E83.42 - Hypomagnesemia Status: Acute Assessment and Plan: magnesium level was low. This was supplemented and is okay today. (5) Hypokalemia: Code(s): E87.6 - Hypokalemia Status: Acute Assessment and Plan: Potassium was low. This is possibly low because of the diarrhea and poor intake. Will continue to supplement potassium. (6) Hypertension: Code(s): I10 - Essential (primary) hypertension Status: Chronic Assessment and Plan: Blood pressure is under good control (7) Weakness: Code(s): R53.1 - Weakness Status: Acute Assessment and Plan: probably due to the very low potassium (8) Acute UTI: Code(s): N39.0 - Urinary tract infection, site not specified Status: Acute Assessment and Plan: cultures are done this was negative. Subjective Date/time seen: 05/26/22 07:00 Interval history: patient feels better this morning. No chest pain or shortness of breath Review of Systems Cardiovascular: Cardiovascular: Reports no additional cardiovascular complaints Respiratory: Respiratory: Reports no additional respiratory complaints Gastrointestinal: Gastrointestinal: Reports no additional gastrointestinal complaints Genitourinary: Genitourinary: Reports no additional male genitourinary complaints Exam Narrative: WDWN in NAD skin no rash head ncat lungs clear cor reg no rub abd BS+ nontender and soft ext no edema. Objective Data Vital Signs Vital Signs: Vital Signs - 24 hr 05/25/22 16:00 05/25/22 20:00 05/25/22 22:00 Temperature 36.2 C L Pulse Rate 57 L 59 L 71 Respiratory Rate 16 Blood Pressure 131/59 L Pulse Oximetry 100 Oxygen Delivery 05/26/22 00:00 05/26/22 04:00 05/26/22 06:00 Temperature 36.4 C L Pulse Rate 58 L 61 66 Respiratory Rate 16 Blood Pressure 136/58 L Pulse Oximetry 100 Oxygen Delivery 05/26/22 08:40 05/26/22 10:25 05/26/22 08:00 Temperature Pulse Rate 53 L Respiratory Rate Blood Pressure Pulse Oximetry Oxygen Delivery Room Air Room Air 05/26/22 14:00 Temperature 36.4 C Pulse Rate 59 L Respiratory Rate 16 Blood Pressure 125/55 L Pulse Oximetry 100 Oxygen Delivery Intake/Output Intake/Output: Intake & Output 05/23/22 05/24/22 05/25/22 05/26/22 23:59 23:59 23:59 23:59 Intake Total 590 2810 4060 Output Total 475 1350 2150 Balance 115 1460 1910 Meds/Results Medications: Active Medications Generic Name Dose Route Start Last Admin Trade Name Freq PRN Reason Stop Dose Admin Acetaminophen 650 mg 05/25/22 05:00 05/26/22 11:39 Acetaminophen 325 Mg Tablet PO 650 mg Q6H PRN Administration Mild Pain (1-3) or Fever Calcium Carbonate 1,000 mg 05/26/22 08:07 05/26/22 11:40 Calcium Carbonate (Oscal) 500 Mg Tablet PO 1,000 mg TIDWM MANUEL Administration Cyanocobalamin 1,000 mcg 05/25/22 09:00 05/25/22 08:56 Cyanocobalamin Inj 1,000 Mcg/Ml Vial IM 1,000 mcg WEEKLY MANUEL Administration Finasteride 5 mg 05/25/22 09:00 05/26/22 08:53 Finasteride 5 Mg
[2022-05-26] MEDS: SODIUM BICARBONATE TAB 650 MG TABLET 1300 MG PO (17:31)
[2022-05-26 18:01] LABS: Albumin Level 3.4 g/dL (3.5-5.1); Anion Gap 15 mmol/L (8-16); Blood Urea Nitrogen 33 mg/dL (9-20); Calcium 5.6 mg/dL (8.4-10.2); Carbon Dioxide 11 mmol/L (22-30); Chloride 115 mmol/L (98-107); Estimated CRCL calculation 14 ml/min; Estimated Glomerular Filt Rate 17; Glucose 159 mg/dL (65-110); Phosphorus 3.2 mg/dL (2.5-4.5); Potassium 3.6 mmol/L (3.4-5.0); Sodium 141 mmol/L (137-145)
--- NOTE | 2022-05-26 18:43 | PM.IMPN ---
Progress Note: A&P Assessment and Plan (1) Metabolic acidosis: Code(s): E87.20 - Acidosis, unspecified Status: Acute (2) CKD (chronic kidney disease) stage 4, GFR 15-29 ml/min: Code(s): N18.4 - Chronic kidney disease, stage 4 (severe) Status: Acute (3) Hypocalcemia: Code(s): E83.51 - Hypocalcemia Status: Acute (4) Hypomagnesemia: Code(s): E83.42 - Hypomagnesemia Status: Acute (5) B12 deficiency: Code(s): E53.8 - Deficiency of other specified B group vitamins Status: Acute (6) Weight loss: Code(s): R63.4 - Abnormal weight loss Status: Acute (7) Weakness: Code(s): R53.1 - Weakness Status: Acute (8) Elevated troponin: Code(s): R77.8 - Other specified abnormalities of plasma proteins Status: Acute (9) Acute kidney injury: Code(s): N17.9 - Acute kidney failure, unspecified Status: Acute (10) Hypokalemia: Code(s): E87.6 - Hypokalemia Status: Acute (11) Hypertension: Code(s): I10 - Essential (primary) hypertension Status: Chronic (12) BPH (benign prostatic hyperplasia): Code(s): N40.0 - Benign prostatic hyperplasia without lower urinary tract symptoms Status: Chronic (13) Renal transplant, status post: Code(s): Z94.0 - Kidney transplant status Status: Chronic Plan 05/25/22 Creat 5.7/BUN 49 on admission. Unsure of patient's baseline creatinine. Consider prerenal versus obstructive uropathy from longstanding BPH vs UTI vs progressive failure after transplant. He has had progressive weight loss for unclear reasons as well.? Plan is for transfer to [place] on beds available.? Continue IV fluids.? Bladder is not palpable but will check a renal ultrasound.? Nephrology consulted. Monitor urine output. Continue Rocephin. Request old records. Urine studies ordered. Potassium now <2.0. Probably related to the hypomag at 0.6. Related to poor oral intake? Losing potassium in urine? Replace potassium and Mag. Follow closely. Place on tele. Check lytes Suspect this is secondary to the acute kidney injury. No CP but does have SOB. EKG reviewed.? Place on tele. Check Echo. AG metabolic acidosis. Related to BRIAN. Could explain his weight loss. Normally acidosis makes potassium higher. Nephrology consulted. Will defer to nephrology. May need HD. UA noted. UCx and BCx collected. Continue Rocephin. Follow up on culture results. Mag level low. Replace. Repeat labs later today and continue to replace. Calcium noted. Corrected for low albumin still showing low calcium. Will replace and follow As above. Anticipate transfer to [place] so patient can be cared for by his transplant team there, on the waiting list BP noted and stable. He does not take hydralazine since it has been causing a drop in BP. Will hold this. Avoid nephrotoxic agents. Check bladder scan and place Alvarez if urine retention noted. Flomax resumed Likely 2/2 BRIAN and electrolyte abnormalities. Influenza and COVID negative. Procal 0.3. Monitor fluid status and creat closely. failure to thrive Unsure of etiology but appears to have poor oral intake. Monitor B12 190. Replace weekly x4 then monthly. 05/26/22 CKD4 at baseline renal fxn slowly improving patent alvarez w clear yellow urine avoid hypotension nephrology following monitor electrolytes dc rocephin tomorrow is Blood and urine cx remain NGTD cont supportive care am labs ordered Subjective Date/time seen: 05/26/22 18:43 pt without complaints, alvarez patent and Cr down trending Review of Systems Review of Systems: All systems reviewed & are unremarkable except as noted in HPI and below Exam Narrative: Gen - NAD alert cooperative Lung - few basilar inspiratory crackles. CV - RRR S1/S2 Abd - Soft, NT/ND, Positive BS Ext - No pedal edema Psych - mood and affect congruent Skin - Warm and dry Objective Data Vital Signs Vital Signs: Vital Signs - 24 hr
[2022-05-26 18:47] LABS: Vitamin D 25 Hydroxy 25.6 ng/mL
[2022-05-26] MEDS: CALCIUM GLUC 2,000 MG/NS 100ML 2,000 MG/100 ML BAG 100 MG IVPB (19:36)
[2022-05-27] VITALS (9 sets, daily range): BP systolic 126–146; BP diastolic 59–62; PULSE 51–64; RESP 18–20; TEMP 36.3–36.6; O2SAT 99–100
[2022-05-27 07:08] LABS: Basophils Percent Auto 0.5 % (0.2-1.2); Eosinophils Absolute Auto 0.3 K/mm3 (0-0.3); Hematocrit 23.4 % (42.0-52.0); Hemoglobin 7.8 g/dL (14.0-18.0); Immature Granulocyte Absolute 0.13 K/mm3 (0.00-0.031); Immature Granulocyte Percent A 1.5 % (0-0.5); Lymphocytes Absolute Auto 0.86 K/mm3 (0.9-3.2); Lymphocytes Percent Auto 10.1 % (18.3-44.2); Mean Corpuscular HGB Conc 33.3 g/dl (32-36); Mean Corpuscular Hemoglobin 29.1 pg (26-34); Mean Corpuscular Volume 87.3 fl (80-100); Mean Platelet Volume 10.5 fl (7.4-10.4); Monocytes Absolute Auto 0.6 K/mm3 (0.1-0.6); Monocytes Percent Auto 7.4 % (2.6-8.5); Neutrophils Absolute Auto 6.5 K/mm3 (1.3-6.7); Neutrophils Percent Auto 76.5 % (45.5-73.1); Platelet Count Result 182 k/mm3 (150-375); Red Blood Count 2.68 M/mm3 (4.6-6.20); Red Cell Distribution Width 18.8 % (11.5-14.5); White Blood Count 8.5 K/mm3 (4.5-10.0)
[2022-05-27 07:21] LABS: Alanine Aminotransferase 13 U/L (6-50); Albumin Level 2.7 g/dL (3.5-5.1); Alkaline Phosphatase 58 U/L (38-126); Anion Gap 15 mmol/L (8-16); Aspartate Amino Transferase 15 U/L (17-59); Bilirubin,Total 0.3 mg/dL (0.2-1.3); Blood Urea Nitrogen 30 mg/dL (9-20); Carbon Dioxide 13 mmol/L (22-30); Chloride 113 mmol/L (98-107); Estimated CRCL calculation 14 ml/min; Estimated Glomerular Filt Rate 17; Glucose 91 mg/dL (65-110); Magnesium 1.2 mg/dL (1.6-2.3); Phosphorus 3.4 mg/dL (2.5-4.5); Sodium 141 mmol/L (137-145)
[2022-05-27] MEDS: TAMSULOSIN HCL 0.4 MG CAPSULE 0.8 MG PO (09:04)
[2022-05-27] MEDS: PYRIDOXINE HCL 50 MG TABLET PO (09:04)
[2022-05-27] MEDS: FINASTERIDE 5 MG TABLET PO (09:05)
[2022-05-27] MEDS: CALCIUM CARBONATE (OSCAL) 500 MG TABLET 1000 MG PO ×3 (09:05→17:20)
[2022-05-27] MEDS: predniSONE 5 MG TABLET PO (09:05)
[2022-05-27] MEDS: SODIUM BICARBONATE TAB 650 MG TABLET 1300 MG PO ×3 (09:06→17:21)
[2022-05-27] MEDS: ACETAMINOPHEN 325 MG TABLET 650 MG PO (11:48)
--- NOTE | 2022-05-27 13:58 | PCOTNOTE ---
Attempted to see patient this pm, however patient refused. Pt stated, Like I told the other girl, if it wasn't for all these stupid tubes, I could do everything by myself. I already got washed up earlier today. Pt was agitated and anxious to get home stating, They don't even have a reason to keep. The things they wanted to improve are better. The doctor was in and said maybe we could get rid of some of this stuff. But thanks for offering anyway.
--- NOTE | 2022-05-27 14:14 | PM.IMPN ---
Progress Note: A&P Assessment and Plan (1) Metabolic acidosis: Code(s): E87.20 - Acidosis, unspecified Status: Acute (2) CKD (chronic kidney disease) stage 4, GFR 15-29 ml/min: Code(s): N18.4 - Chronic kidney disease, stage 4 (severe) Status: Acute (3) Hypocalcemia: Code(s): E83.51 - Hypocalcemia Status: Acute (4) Hypomagnesemia: Code(s): E83.42 - Hypomagnesemia Status: Acute (5) B12 deficiency: Code(s): E53.8 - Deficiency of other specified B group vitamins Status: Acute (6) Weight loss: Code(s): R63.4 - Abnormal weight loss Status: Acute (7) Weakness: Code(s): R53.1 - Weakness Status: Acute (8) Elevated troponin: Code(s): R77.8 - Other specified abnormalities of plasma proteins Status: Acute (9) Acute kidney injury: Code(s): N17.9 - Acute kidney failure, unspecified Status: Acute (10) Hypokalemia: Code(s): E87.6 - Hypokalemia Status: Acute (11) Hypertension: Code(s): I10 - Essential (primary) hypertension Status: Chronic (12) BPH (benign prostatic hyperplasia): Code(s): N40.0 - Benign prostatic hyperplasia without lower urinary tract symptoms Status: Chronic (13) Renal transplant, status post: Code(s): Z94.0 - Kidney transplant status Status: Chronic Plan 05/25/22 Creat 5.7/BUN 49 on admission. Unsure of patient's baseline creatinine. Consider prerenal versus obstructive uropathy from longstanding BPH vs UTI vs progressive failure after transplant. He has had progressive weight loss for unclear reasons as well.? Plan is for transfer to [place] on beds available.? Continue IV fluids.? Bladder is not palpable but will check a renal ultrasound.? Nephrology consulted. Monitor urine output. Continue Rocephin. Request old records. Urine studies ordered. Potassium now <2.0. Probably related to the hypomag at 0.6. Related to poor oral intake? Losing potassium in urine? Replace potassium and Mag. Follow closely. Place on tele. Check lytes Suspect this is secondary to the acute kidney injury. No CP but does have SOB. EKG reviewed.? Place on tele. Check Echo. AG metabolic acidosis. Related to BRIAN. Could explain his weight loss. Normally acidosis makes potassium higher. Nephrology consulted. Will defer to nephrology. May need HD. UA noted. UCx and BCx collected. Continue Rocephin. Follow up on culture results. Mag level low. Replace. Repeat labs later today and continue to replace. Calcium noted. Corrected for low albumin still showing low calcium. Will replace and follow As above. Anticipate transfer to [place] so patient can be cared for by his transplant team there, on the waiting list BP noted and stable. He does not take hydralazine since it has been causing a drop in BP. Will hold this. Avoid nephrotoxic agents. Check bladder scan and place Alvarez if urine retention noted. Flomax resumed Likely 2/2 BRIAN and electrolyte abnormalities. Influenza and COVID negative. Procal 0.3. Monitor fluid status and creat closely. failure to thrive Unsure of etiology but appears to have poor oral intake. Monitor B12 190. Replace weekly x4 then monthly. 05/26/22 CKD4 at baseline renal fxn slowly improving patent alvarez w clear yellow urine avoid hypotension nephrology following monitor electrolytes dc rocephin tomorrow is Blood and urine cx remain NGTD cont supportive care am labs ordered 05/27/22 CKD4 BRIAN improving voiding trial b/f dc flomax and finasteride K low repleted dc rocephin home w [facility] tomorrow if remains stable +/- alvarez Subjective Date/time seen: 05/27/22 14:14 no new complaints Review of Systems Review of Systems: All systems reviewed & are unremarkable except as noted in HPI and below Exam Narrative: Gen - NAD alert cooperative Lung - few basilar inspiratory crackles. CV - RRR S1/S2 Abd - Soft, NT/ND, Positive BS Ext - No pedal edema Psych - m
--- NOTE | 2022-05-27 15:17 | PM.PNNEP ---
Progress Note: A&P Assessment and Plan (1) Acute kidney injury: Code(s): N17.9 - Acute kidney failure, unspecified Status: Acute Assessment and Plan: patient has acute kidney injury. Probably dehydrated. His creatinine is improving. It is down to 3.6 today. this is his baseline. he has a alvarez catheter due to high residual volume. on flomax. 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 Baseline creatinine to 3.7 (3) Hypocalcemia: Code(s): E83.51 - Hypocalcemia Status: Acute Assessment and Plan: calcium level is still low. Phosphorus was low as well. phos now better. Calcium still low. will give more IV calcium vitamin-D is low. will give supplement change calcium oral supplement to give without meals for better absorption (4) Hypomagnesemia: Code(s): E83.42 - Hypomagnesemia Status: Acute Assessment and Plan: okay last draw (5) Hypokalemia: Code(s): E87.6 - Hypokalemia Status: Acute Assessment and Plan: Potassium was low. This is possibly low because of the diarrhea and poor intake. given another round of KCL today and will give BID watching levels daily. (6) Hypertension: Code(s): I10 - Essential (primary) hypertension Status: Chronic Assessment and Plan: Blood pressure is under good control (7) Weakness: Code(s): R53.1 - Weakness Status: Acute Assessment and Plan: probably due to the very low potassium (8) Acute UTI: Code(s): N39.0 - Urinary tract infection, site not specified Status: Acute Assessment and Plan: cultures are done this was negative. Subjective Date/time seen: 05/27/22 15:17 Interval history: patient feels better this morning. eager for discharge. he doesn't want to go to [place] Exam Narrative: WDWN in NAD skin no rash head ncat lungs clear bilaterally cor reg no rub abd BS+ nontender and soft ext no edema or cyanosis. neuro: chvostek sign negative Objective Data Vital Signs Vital Signs: Vital Signs - 24 hr 05/26/22 16:00 05/26/22 20:00 05/26/22 22:00 Temperature 36.6 C Pulse Rate 59 L 56 L 56 L Respiratory Rate 16 Blood Pressure 130/59 L Pulse Oximetry 100 Oxygen Delivery 05/27/22 00:00 05/27/22 04:00 05/27/22 06:00 Temperature 36.3 C L Pulse Rate 51 L 57 L 58 L Respiratory Rate 18 Blood Pressure 126/61 Pulse Oximetry 100 Oxygen Delivery 05/27/22 08:00 05/27/22 08:00 05/27/22 14:00 Temperature 36.6 C Pulse Rate 58 L 58 L 64 Respiratory Rate 18 20 Blood Pressure 134/62 Pulse Oximetry 100 100 Oxygen Delivery Room Air Intake/Output Intake/Output: Intake & Output 05/24/22 05/25/22 05/26/22 05/27/22 23:59 23:59 23:59 23:59 Intake Total 590 2860 4350 1550 Output Total 475 1350 3500 800 Balance 115 1510 850 750 Meds/Results Medications: Active Medications Generic Name Dose Route Start Last Admin Trade Name Hiq PRN Reason Stop Dose Admin Acetaminophen 650 mg 05/25/22 05:00 05/27/22 11:48 Acetaminophen 325 Mg Tablet PO 650 mg Q6H PRN Administration Mild Pain (1-3) or Fever Calcium Carbonate 1,000 mg 05/26/22 08:07 05/27/22 11:49 Calcium Carbonate (Oscal) 500 Mg Tablet PO 1,000 mg TIDWM MANUEL Administration Cyanocobalamin 1,000 mcg 05/25/22 09:00 05/25/22 08:56 Cyanocobalamin Inj 1,000 Mcg/Ml Vial IM 1,000 mcg WEEKLY MANUEL Administration Finasteride 5 mg 05/25/22 09:00 05/27/22 09:05 Finasteride 5 Mg Tablet PO 5 mg DAILY MANUEL Administration Home Med 1 each 05/25/22 17:00 05/27/22 09:12 Mycophenolate Sodium 360 Mg (Home Medication) PO 06/24/22 16:59 1 each BIDWM MANUEL
[2022-05-27] MEDS: POTASSIUM CHLORIDE 20 MEQ TABLET.ER 40 MEQ PO ×3 (15:50→17:23)
[2022-05-27] MEDS: MAGNESIUM SULF 2 GM/WATER 50ML 2 GM/50 ML BAG IVPB (15:51)
[2022-05-27] MEDS: ERGOCALCIFEROL 50,000 UNITS CAPSULE 50000 UNITS PO (17:19)
[2022-05-27] MEDS: CALCIUM GLUC 1,000 MG/NS 50 ML 1,000 MG/50 ML BAG 100 MG IVPB (17:19)
[2022-05-28] MEDS: ACETAMINOPHEN 325 MG TABLET 650 MG PO ×2 (00:56→08:42)
--- NOTE | 2022-05-28 03:54 | PC.NURSE ---
Reports indicate patient waiting bed at [place] to be treated by transplant team Bed became available and patient was informed of the news Patient got very agitated and reported I have been telling the doctor for 3 days that I am not going Pt refused to be transferred and stated My car is outside I will go home tomorrow Transfer process discontinued
[2022-05-28 06:00] VITALS: BP 147/59; PULSE 62; RESP 18; TEMP 36.8; O2SAT 100
[2022-05-28 06:30] LABS: Basophils Absolute Auto 0.1 K/mm3 (0.0-0.1); Basophils Percent Auto 0.7 % (0.2-1.2); Eosinophils Absolute Auto 0.5 K/mm3 (0-0.3); Eosinophils Percent Auto 5.4 % (0-4.4); Hematocrit 23.4 % (42.0-52.0); Hemoglobin 7.8 g/dL (14.0-18.0); Immature Granulocyte Absolute 0.13 K/mm3 (0.00-0.031); Immature Granulocyte Percent A 1.5 % (0-0.5); Lymphocytes Absolute Auto 1.07 K/mm3 (0.9-3.2); Lymphocytes Percent Auto 12.4 % (18.3-44.2); Mean Corpuscular HGB Conc 33.3 g/dl (32-36); Mean Corpuscular Hemoglobin 28.8 pg (26-34); Mean Corpuscular Volume 86.3 fl (80-100); Mean Platelet Volume 10.6 fl (7.4-10.4); Monocytes Absolute Auto 0.6 K/mm3 (0.1-0.6); Monocytes Percent Auto 6.7 % (2.6-8.5); Neutrophils Absolute Auto 6.3 K/mm3 (1.3-6.7); Neutrophils Percent Auto 73.3 % (45.5-73.1); Platelet Count Result 189 k/mm3 (150-375); Red Blood Count 2.71 M/mm3 (4.6-6.20); Red Cell Distribution Width 18.8 % (11.5-14.5); White Blood Count 8.6 K/mm3 (4.5-10.0)
[2022-05-28 06:35] LABS: Alanine Aminotransferase 13 U/L (6-50); Albumin Level 2.7 g/dL (3.5-5.1); Alkaline Phosphatase 58 U/L (38-126); Anion Gap 12 mmol/L (8-16); Aspartate Amino Transferase 15 U/L (17-59); Bilirubin,Total 0.4 mg/dL (0.2-1.3); Blood Urea Nitrogen 29 mg/dL (9-20); Calcium 6.7 mg/dL (8.4-10.2); Carbon Dioxide 15 mmol/L (22-30); Chloride 115 mmol/L (98-107); Estimated CRCL calculation 16 ml/min; Estimated Glomerular Filt Rate 20; Glucose 82 mg/dL (65-110); Magnesium 1.6 mg/dL (1.6-2.3); Phosphorus 2.8 mg/dL (2.5-4.5); Potassium 3.8 mmol/L (3.4-5.0); Sodium 142 mmol/L (137-145)
[2022-05-28] MEDS: POTASSIUM CHLORIDE 20 MEQ TABLET.ER 40 MEQ PO (08:34)
[2022-05-28] MEDS: CALCIUM CARBONATE (OSCAL) 500 MG TABLET 1000 MG PO ×3 (08:35→16:48)
[2022-05-28] MEDS: FINASTERIDE 5 MG TABLET PO (08:35)
[2022-05-28] MEDS: predniSONE 5 MG TABLET PO (08:36)
[2022-05-28] MEDS: PYRIDOXINE HCL 50 MG TABLET PO (08:36)
[2022-05-28] MEDS: SODIUM BICARBONATE TAB 650 MG TABLET 1300 MG PO ×3 (08:36→16:49)
[2022-05-28] MEDS: TAMSULOSIN HCL 0.4 MG CAPSULE 0.8 MG PO (08:38)
[2022-05-28 10:33] LABS: Tacrolimus Prograf 11.5 mcg/L
[2022-05-28] MEDS: MAGNESIUM SULF 2 GM/WATER 50ML 2 GM/50 ML BAG IVPB (12:28)
--- NOTE | 2022-05-28 13:00 | PCOTNOTE ---
Attempted to see patient this pm, however patient refused stating, I'm hoping to go home, and I can do what I need to then.
[2022-05-28 14:08] VITALS: BP 158/56; PULSE 58; RESP 18; TEMP 36.6; O2SAT 100
[2022-05-28 14:44] VITALS: BP 145/70
--- NOTE | 2022-05-28 15:46 | PM.DS ---
DS: Admitting Diagnosis Discharge Date 05/28/22 Admitting Diagnosis (1) Acute kidney injury: ?Code(s): N17.9 - Acute kidney failure, unspecified ?Status:?Acute (2) Hypokalemia: ?Code(s): E87.6 - Hypokalemia ?Status:?Acute (3) Hypertension: ?Code(s): I10 - Essential (primary) hypertension ?Status:?Chronic (4) BPH (benign prostatic hyperplasia): ?Code(s): N40.0 - Benign prostatic hyperplasia without lower urinary tract symptoms ?Status:?Chronic (5) Renal transplant, status post: ?Code(s): Z94.0 - Kidney transplant status ?Status:?Chronic ? (6) Elevated troponin: ?Code(s): R77.8 - Other specified abnormalities of plasma proteins ?Status:?Acute ? ? (7) Weakness: ?Code(s): R53.1 - Weakness ?Status:?Acute (8) Weight loss: ?Code(s): R63.4 - Abnormal weight loss ?Status:?Acute ? DS: Discharge Diagnosis Discharge Diagnosis (1) Metabolic acidosis: Code(s): E87.20 - Acidosis, unspecified Status: Acute (2) CKD (chronic kidney disease) stage 4, GFR 15-29 ml/min: Code(s): N18.4 - Chronic kidney disease, stage 4 (severe) Status: Acute (3) Hypocalcemia: Code(s): E83.51 - Hypocalcemia Status: Acute (4) Hypomagnesemia: Code(s): E83.42 - Hypomagnesemia Status: Acute (5) B12 deficiency: Code(s): E53.8 - Deficiency of other specified B group vitamins Status: Acute (6) Weight loss: Code(s): R63.4 - Abnormal weight loss Status: Acute (7) Weakness: Code(s): R53.1 - Weakness Status: Acute (8) Elevated troponin: Code(s): R77.8 - Other specified abnormalities of plasma proteins Status: Acute (9) Acute kidney injury: Code(s): N17.9 - Acute kidney failure, unspecified Status: Acute (10) Hypokalemia: Code(s): E87.6 - Hypokalemia Status: Acute (11) Hypertension: Code(s): I10 - Essential (primary) hypertension Status: Chronic (12) BPH (benign prostatic hyperplasia): Code(s): N40.0 - Benign prostatic hyperplasia without lower urinary tract symptoms Status: Chronic (13) Renal transplant, status post: Code(s): Z94.0 - Kidney transplant status Status: Chronic DS: Summary Hospital Course Reason for hospitalization: Chief Complaint: ? Weakness Narrative: ?76-year-old male with past medical history significant for renal transplant done at [facility] several years ago, hypertension, BPH is presenting with weakness and progressively worsening weight loss over the last few weeks.? Patient states he has had a runny nose, sore throat and has not felt well over the last few days.? His appetite has been somewhat decreased during this time period. ? Denies any chest pain or shortness of breath.? No nausea vomiting or diarrhea.? No fevers or chills.? No sick contacts or recent travel.? He states he gets his creatinine checked once a month but does not follow these numbers and is not sure what his baseline is.? He states he last took his tacrolimus May 24, 2022 in the a.m. In the ER, ? He was found to have a significant acute kidney injury with a creatinine of 5.7 and a BUN of 49, unknown baseline.? He also had an anemia with a hemoglobin of 10.3, also no known baseline.? White blood cell count was 11.8.? He had mild hypokalemia with a potassium of 3.1. urinalysis was done and was positive for protein, blood, leuk esterase and significant white blood cells.? There were rare squamous epithelial cells and was negative for nitrates.? Urine culture is pending. ? Chest x-ray showed a 1.5 cm opacity in the right upper lung concerning for lung mass.? Therefore a CT of the chest was ordered and showed no pulmonary nodule or mass.? There was an irregular somewhat nodular opacity along the superior margin of the right major fissure corresponding with the opacity seen on the chest x-ray that was thought to be s
[2022-05-28 16:53] LABS: Ionized Calcium 3.7 mg/dL (4.8-5.6)
[2022-05-29 14:05] LABS: Chloride Rand Ur 30 mmol/L (32-290); Chloride/Creatinine Rand Ur 91 (23-275); Creatinine Random Urine 33 mg/dL (20-320)
== END 2022-05-28 17:40 | disposition home health service (06) | DRG 699 ==
LOC: ANHED 21:41 → ANH3MEDSUR 22:22
PROVIDERS: Emergency Medicine; Internal Medicine; Internal Medicine Nephrology; Student in an Organized Health Care Education/Training Program; Admitting Provider Family Medicine; Emergency Provider Emergency Medicine; Visit Provider Hospitalist
DX: T86.19 Other complication of kidney transplant (principal); N17.9 Acute kidney failure, unspecified; E87.21 Acute metabolic acidosis; N18.4 Chronic kidney disease, stage 4 (severe); Z94.0 Kidney transplant status; E86.0 Dehydration; Z20.822 Contact with and (suspected) exposure to COVID-19; E87.6 Hypokalemia; I10 Essential (primary) hypertension; N40.0 Benign prostatic hyperplasia without lower urinary tract symptoms; R77.8 Other specified abnormalities of plasma proteins; R63.4 Abnormal weight loss; E83.51 Hypocalcemia; E83.42 Hypomagnesemia; E53.8 Deficiency of other specified B group vitamins; D64.9 Anemia, unspecified; M19.032 Primary osteoarthritis, left wrist; M19.031 Primary osteoarthritis, right wrist
CPT/HCPCS: 36415; 71046; 71250; 76775; 80053; 80069; 80197; 81001; 82306; 82330; 82436; 82550; 82570; 82607; 82746; 83036; 83605; 83735; 84100; 84132; 84133; 84145; 84300; 84443; 84484; 85025; 85999; 86140; 87040; 87086; 87502; 93005; 93306; 96365; 97116; 97161; 97165; 97530; 99285; A9270; J0610; J0696; J3420; J3475; J3480; J7060; J7070; J7512; U0003; U0005

== ENCOUNTER 2022-07-06 14:02 | Inpatient (IN) | payer MEDICARE, SELFPAY ==
[2022-07-06] VITALS (23 sets, daily range): BP systolic 86–122; BP diastolic 44–83; PULSE 75–83; RESP 19–39; TEMP 35.5–36.4; O2SAT 96–100; BMI 20.3
--- NOTE | ~2022-07-06 | US_ITS ---
EXAMINATION: US renal BI DATE: 07/07/2022 09:18 INDICATION: Acute kidney injury TECHNIQUE: Multiple grayscale and Doppler ultrasound images of the kidneys were obtained. COMPARISON: 05/25/2022 FINDINGS: The [place] right kidney is atrophic and measures 8.0 x 4.5 x 4.0 cm. The right pelvic trans plant kidney measures 11.1 x 6.5 x 5.9 cm. The left kidney measures 10.5 x 3.8 x 4.6 cm and contains a 2.5 cm cyst. The [place] kidneys demonstrate increased parenchymal echogenicity. There is no hydrone phrosis. The bladder is decompressed by a Munguia catheter. IMPRESSION: 1. Atrophy of the port gam[place] right kidney and normal-appearing right pelvic transplant kidney. Increased parenchymal echogenicity of the left kidney, likely due to medical renal disease. Reviewed, dictated and finalized at location A. D BANK TECHNICIAN IMPRESSION: 1. Atrophy of the port gam[place] right kidney and normal-appearing right pelvic transpl ant kidney. Increased parenchymal echogenicity of the left kidney, likely due t o medical renal disease.
--- NOTE | ~2022-07-06 | XR_ITS ---
EXAMINATION: XR chest 1V portable DATE: 07/08/2022 08:25 INDICATION: Septic shock. TECHNIQUE: A single frontal view of the chest was obtained. COMPARISON: Chest single view 07/07/2022, chest CT 05/24/2022 FINDINGS: There are airspace and interstitial opacities in the mid and lower lung zones, right worse than left. No pleural effusion or pneumothorax. The heart size is normal. IMPRESSION: 1. Airspace opacities in the mid and lower lung zones, right worse than left with slight worsening on the right, likely a combination of pneumonia and pulmonary edema. Given the low platelet count and a cute anemia, hemorrhage cannot be excluded. Reviewed, dictated and finalized at location A. LITIES OFFICER IMPRESSION: 1. Airspace opacities in the mid and lower lung zones, right worse than left wi th slight worsening on the right, likely a combination of pneumonia and pulmona ry edema. Given the low platelet count and acute anemia, hemorrhage cannot be e xcluded.
--- NOTE | ~2022-07-06 | XR_ITS ---
EXAMINATION: XR chest 2V DATE: 07/06/2022 14:40 INDICATION: Increasing weakness post fall one day prior TECHNIQUE: frontal and lateral views of the chest were obtained. COMPARISON: Chest radiograph and CT dated 05/24/2022 FINDINGS: New airspace opacities in the bilateral posterior infrahilar regions. No pleural effusion or pneumoth orax. There are few calcified nodules in the right lung consistent with old granulomatous disease. He art size is normal. Cholecystectomy clips in right upper quadrant. Mild thoracic spondylosis. IMPRESSION: 1. New bilateral posterior infrahilar opacities which could represent pulmonary edema, atelectasis or pneumonia. Reviewed, dictated and finalized at location A. EMIC RECORDS SPECIALIST
--- NOTE | ~2022-07-06 | CT_ITS ---
EXAMINATION: CT brain wo con DATE: 07/06/2022 14:31 INDICATION: Weakness post fall one day prior TECHNIQUE: Computed tomography (CT) of the head was performed without intravenous contrast. Sagittal and coronal reconstructions were performed. The mA was adjusted according to patient size. Iterative reconstruction technique was employed. The dose-length product was 605.33 mGy-cm. COMPARISON: None FINDINGS: Couple small age-indeterminate infarcts at the head of the left caudate nucleus. No acute intracrania l hemorrhage or abnormal extra axial fluid collection. There is minimal scattered white matter hypoat tenuation consistent with chronic small vessel ischemic disease. Symmetric prominence of the sulci co nsistent with mild age-appropriate diffuse cerebral volume loss. No mass/mass effect. The orbits and mastoid air cells are normal. Prominent mucosal thickening the paranasal sinuses with opacification o f a few bilateral ethmoid air cells and the right maxillary sinus. IMPRESSION: 1. Small age indeterminate lacunar infarcts at the head of the left caudate nucleus. 2. Age-related changes including mild diffuse volume loss and minimal scattered white matter hypoatte nuation consistent with chronic small vessel ischemic disease. 3. Sinus disease. Reviewed, dictated and finalized at location A. N RESOURCES CLERK IMPRESSION: 1. Small age indeterminate lacunar infarcts at the head of the left caudate nuc leus. 2. Age-related changes including mild diffuse volume loss and minimal scattered white matter hypoattenuation consistent with chronic small vessel ischemic dis ease. 3. Sinus disease.
--- NOTE | ~2022-07-06 | US_ITS ---
EXAMINATION: US abdomen limited DATE: 07/08/2022 20:08 INDICATION: Splenomegaly TECHNIQUE: Multiple grayscale and Doppler ultrasound images of the abdomen were obtained. COMPARISON: None FINDINGS: The small visualized portion of the pancreatic body is normal. The majority the pancreas is obscured by shadowing bowel gas. Liver has normal echogenicity and contour, with a smooth surface. No liver le wilma identified. No intrahepatic biliary duct dilation suspected. Portal venous flow was seen in the hepatopetal, normal direction and has normal Doppler waveform. Gallbladder is not visualized. The com mon bile duct measures 3 mm in maximal diameter. Sonographic Pastrana sign was reported as negative by the network architect manager. Visualized proximal inferior vena cava is normal. Spleen is normal measuring 9.9 x 5 .3 x 5.0 cm. Small bilateral pleural effusions. IMPRESSION: 1. Small bilateral pleural effusions. 2. Nonvisualized gallbladder. Correlate for possible prior cholecystectomy. 3. Normal spleen measuring 9.9 cm in maximal length. Reviewed, dictated and finalized at location A. NEERING PROJECT MANAGER
--- NOTE | ~2022-07-06 | XR_ITS ---
EXAMINATION: XR chest 1V portable DATE: 07/09/2022 06:32 INDICATION: Pneumonia. TECHNIQUE: A single frontal view of the chest was obtained. COMPARISON: Chest single view 07/08/2022 FINDINGS: There is a diffuse interstitial pattern in the lungs. There are airspace opacities in the p erihilar regions and lower lung zones. There are small pleural effusions. No pneumothorax. The heart size is normal. IMPRESSION: 1. Worsened diffuse lung disease, likely a combination of pneumonia and pulmonary edema. Hemorrhage c annot be excluded. 2. Small pleural effusions. Reviewed, dictated and finalized at location A. NURSE IMPRESSION: 1. Worsened diffuse lung disease, likely a combination of pneumonia and pulmona ry edema. Hemorrhage cannot be excluded. 2. Small pleural effusions.
--- NOTE | ~2022-07-06 | XR_ITS ---
Portable chest x-ray Comparison: 07/06/2022 Clinical History: Respiratory distress Findings: There is extensive groundglass opacity in the lungs, relatively sparing the right upper lo be, largely new from prior exam. No pleural effusions. Cardiomediastinal silhouette is stable. Bones and soft tissues are unremarkable. Impression: Extensive new groundglass opacity in the lungs, relatively sparing the right upper lobe. Given acuity of onset and appearance, this is most consistent with pulmonary edema. Correlate clinically for infe ction. Reviewed, dictated and finalized at location [] DIAN AD LITEM Impression: Extensive new groundglass opacity in the lungs, relatively sparing the right up per lobe. Given acuity of onset and appearance, this is most consistent with pu lmonary edema. Correlate clinically for infection.
--- NOTE | 2022-07-06 14:13 | ECG_ITS ---
Measurements Intervals [place] Rate: 78 P: 74 IN: 173 QRS: 51 QRSD: 106 T: 67 QT: 451 QTc: 515 Interpretive Statements SINUS RHYTHM PROLONGED QT INTERVAL COMPARED TO ECG 05/24/2022 12:04:16 PROLONGED QT INTERVAL NOW PRESENT Electronically Signed On 07-06-2022 16:38:02 HUMAN SERVICES INSTRUCTOR by Shyam Hough M.D.
--- NOTE | 2022-07-06 14:17 | ED.WEAKNESS ---
HPI - Weakness General Chief complaint: Weakness Stated complaint: FALL Time Seen by Provider: 07/06/22 14:04 History of Present Illness HPI Narrative: Patient is a 76-year-old male who presents ER status post fall. Fell last night. Laid on the ground for 2 hours and some myocardium and help from pick him up off the floor. Patient is short of breath and fatigue. He has very poor historian due to his fatigue. He is able to verbalize that he is lost 40 pounds over an unknown amount of time. He is very frail in appearance. He has scattered bruising to the entire body from previous falls. Has a skin tear that has blood clotting over it to the right hand. He has bruising and biting of the left on the right side upper lip. No pain in his extremities. Patient unsure why this week. O2 sat low and patient placed on supplemental oxygen by EMS. Patient's blood pressure also in the 90s in route. Chart review shows patient has CKD stage IV and has history of renal transplant. He is immunocompromised on tacrolimus. Related Data Home Medications Medication Instructions Recorded Confirmed finasteride 5 mg tablet 5 mg PO DAILY 05/13/22 05/24/22 mycophenolate sodium 360 mg 360 mg PO BID 05/13/22 05/25/22 tablet,delayed release prednisone 5 mg tablet 5 mg PO DIRECTED 05/13/22 05/24/22 pyridoxine (vitamin B6) 50 mg 50 mg PO DAILY 05/13/22 05/24/22 tablet tacrolimus 1 mg tablet,extended 4 mg PO DAILY 05/13/22 05/25/22 release 24 hr (Envarsus XR) tamsulosin 0.4 mg capsule 0.8 mg PO DAILY 05/13/22 05/25/22 Allergies Allergy/AdvReac Type Severity Reaction Status Date / Time No Known Allergies Allergy Verified 05/24/22 23:09 Review of Systems Review of Systems: ROS unobtainable: Yes unobtainable due to medical condition PMFSH Past Medical History Medical History (Updated 07/06/22 @ 22:26 by John Johansen MD) Arthritis of both wrists BPH (benign prostatic hyperplasia) CKD (chronic kidney disease) stage 4, GFR 15-29 ml/min Gout Hypertension Renal failure Surgical History Surgical History Kidney transplanted Renal transplant, status post Social History Social History Smoking status: Never smoker Alcohol intake: never Lack of Transportation: No Lack of Food: Never True Current Housing: I Have Housing Concerned About Future Housing: No Difficulty Paying Gas/Electric Bills: No Difficulty Paying for Meds: No Currently Unemployed: No Education: High School Diploma/GED Difficulty w/ Childcare or Family Care: No Gender identity (if verbalized by the patient): Male Spiritual care concerns: No Exam Narrative: GENERAL: Chronically ill-appearing, underweight, and in no acute distress. HEAD: Normocephalic, atraumatic. EYES: PERRL and EOMI. ENT: Dry mucous membranes. CHEST: Clear to auscultation. No respiratory distress. HEART: Regular rate and rhythm. Normal peripheral pulses. ABDOMEN: Soft, nontender, nondistendeds. EXTREMITIES: Normal range of motion. No edema. SKIN: Warm, dry, scattered bruising of different ages throughout the upper and lower extremities. Skin tears noted to the forearms bilaterally. NEURO: Alert and oriented x3. Course Course Emergency Course: Spoke with renal transplant doctor Dr. Fisher. He recommends patient be started on bicarb drip with 150 mEq of bicarb and D5 and would like labs repeated in 2 hours. This is to determine placement in the MICU versus the floor. Is known patient will be on a wait list either way. Additionally patient's Myfortic should be held but continue tacrolimus and prednisone. Intensive care unit contacted at [facility]. Patient will get a push of 2 A of bicarb prior to starting the drip. Antibiotic coverage broadened however imipenem cannot be given according to pharmacy because patient's creatinine clearance cannot handl
[2022-07-06 14:28] LABS: Basophils Absolute Auto 0.1 K/mm3 (0.0-0.1); Basophils Percent Auto 0.3 % (0.2-1.2); Eosinophils Absolute Auto 0.2 K/mm3 (0-0.3); Eosinophils Percent Auto 1.2 % (0-4.4); Hematocrit 27.9 % (42.0-52.0); Hemoglobin 9.1 g/dL (14.0-18.0); Immature Granulocyte Absolute 0.14 K/mm3 (0.00-0.031); Immature Granulocyte Percent A 0.9 % (0-0.5); Immature Platelet Fraction Pct 3.4 % (0.9-11.2); Lymphocytes Absolute Auto 0.09 K/mm3 (0.9-3.2); Lymphocytes Percent Auto 0.6 % (18.3-44.2); Mean Corpuscular HGB Conc 32.6 g/dl (32-36); Mean Corpuscular Hemoglobin 29.6 pg (26-34); Mean Corpuscular Volume 90.9 fl (80-100); Mean Platelet Volume 11.5 fl (7.4-10.4); Monocytes Absolute Auto 0.5 K/mm3 (0.1-0.6); Monocytes Percent Auto 3.2 % (2.6-8.5); Neutrophils Absolute Auto 14.4 K/mm3 (1.3-6.7); Neutrophils Percent Auto 93.8 % (45.5-73.1); Platelet Count Result 53 k/mm3 (150-375); Red Blood Count 3.07 M/mm3 (4.6-6.20); Red Cell Distribution Width 17.8 % (11.5-14.5); White Blood Count 15.4 K/mm3 (4.5-10.0)
[2022-07-06 14:41] LABS: Anisocytosis 1+ (NORMAL); Burr Cells 2+ (NORMAL); Ovalocytes 1+ (NORMAL); Platelet Estimate Decreased (Adequate); Poikilocytosis 1+ (NORMAL)
[2022-07-06 14:47] LABS: Alanine Aminotransferase 16 U/L (6-50); Alkaline Phosphatase 82 U/L (38-126); Aspartate Amino Transferase 15 U/L (17-59); Bilirubin,Total 0.7 mg/dL (0.2-1.3); Blood Urea Nitrogen 80 mg/dL (9-20); Calcium 7.5 mg/dL (8.4-10.2); Carbon Dioxide < 5 mmol/L (22-30); Chloride 116 mmol/L (98-107); Creatine Kinase 46 U/L (55-170); Estimated CRCL calculation 8 ml/min; Estimated Glomerular Filt Rate 9; Glucose 71 mg/dL (65-110); Sodium 138 mmol/L (137-145)
[2022-07-06 14:57] LABS: CRP 16.5 mg/dL (<1.0)
[2022-07-06 14:58] LABS: INR 1.5; Prothrombin Time 17.6 Seconds (11.1-14.7)
[2022-07-06 14:59] LABS: Partial Thromboplastin Time 36.3 SECONDS (22.3-36.8)
[2022-07-06] MEDS: SODIUM CHLORIDE 0.9% IV 2,100 ML/1,000 ML BAG 999 ML IV CONT ×3 (15:08→16:43)
[2022-07-06 15:34] LABS: Schistocytes None Seen (NORMAL)
[2022-07-06 16:34] LABS: Alveolar/Arterial O2 Gradient 88.8 mmHg; Base Excess ABG -21.2 mEq/l (+/-2.0); Carboxyhemoglobin 0.3 % THb (0-2.0); Fractional Inspired Oxygen 28 %; HCO3 ABG 5.2 mEq/l (22.0-26.0); Methemoglobin ABG 0.2 %THb (0-1.5); Oxygen Saturation ABG 95.6 % (95.0-100.0); Oxyhemoglobin 91.7 % THb (90.0-100.0); PO2 ABG 93.9 mmHg (80.0-100.0); PO2 FiO2 Ratio Arterial Blood 3.35 %; Reduced Hemoglobin 7.8 %THb (0-5.0)
[2022-07-06 16:37] LABS: pH ABG 7.176 (7.350-7.450)
[2022-07-06 16:38] LABS: Device NASAL CANNULA; Modified Allen's Test Pass; PCO2 ABG 14.4 mmHg (35.0-45.0); Site Drawn RIGHT RADIAL; Total Hemoglobin 7.6 g/dL (12.0-18.0)
[2022-07-06 16:52] LABS: Add Urine Microscopic? YES; Appearance Urine Cloudy (Clear); Bilirubin Urine 1+ (Negative); Blood Urine Trace-Intact (Negative); Color Urine Light Yellow (Yellow); Glucose Urine UA Negative (Negative); Ketones Urine Trace mg/dL (Negative); Leukocyte Esterase Ur 1+ LEU/UL (Negative); Nitrate Urine Negative (Negative); Protein Urine 2+ mg/dL (Negative); Specific Grav Ur 1.015 (1.001-1.035); Urobilinogen Urine 0.2 mg/dL (<2.0); pH Urine 6.5 (5.0-9.0)
[2022-07-06 16:57] LABS: Amorphous Sediment Urine Few; Bacteria Urine Trace /hpf; Mucus Urine Rare /lpf; RBC Urine 0-2 /hpf (0-2); Squamous Epithelial Cell Urine Rare /hpf (Few); WBC Urine 31-50 /hpf
[2022-07-06] MEDS: SODIUM CHLORIDE 0.9% IV 1,000 ML 999 ML IV CONT (17:17)
[2022-07-06 17:46] LABS: Influenza A QL RT-PCR Negative (Negative); Influenza B QL RT-PCR Negative (Negative); RSV RNA, RT-PCR Negative (Negative); SARS-CoV-2 RNA PCR Negative
[2022-07-06] MEDS: SODIUM BICARBONATE 8.4% 50 MEQ/50 ML SYRINGE 100 MEQ IV PUSH (18:23)
[2022-07-06] MEDS: SODIUM CHLORIDE 0.9% IV 1,000 ML 125 ML IV CONT (19:00)
[2022-07-06] MEDS: MORPHINE SULFATE (*CRX) 4 MG/ML INJ IV PUSH (19:02)
[2022-07-06] MEDS: PROMETHAZINE HCL 25 MG/ML AMPUL 12.5 MG IV PUSH (19:02)
--- NOTE | 2022-07-06 19:15 | PM.IMHP ---
H&P: HPI History of Present Illness Date/Time: 07/06/22 19:15 Chief Complaint: Weakness. Narrative: This is a 76-year-old male with history of transplant done at [facility] several years ago, chronic kidney disease, hypertension, and benign prostatic hyperplasia who presented to the emergency department via EMS from home for evaluation of weakness. He is known to the hospitalist service with a recent admission on 05/24/2022 at which time he was admitted for acute on chronic kidney injury after presenting with similar complaints. His condition improved with IV fluid rehydration and he was started on bicarbonate tablets with instructions to follow-up with his transplant team. I am not certain he has followed up with them as of yet. In any event he lives in his own home and it seems as though he has gotten progressively more weak since discharge. In fact he called his ex- and his cousin to come help him out at home. He has had multiple falls and he reports that his balance is very poor. Last night he fell forward onto the floor (unknown if loss of consciousness) and he was unable to get himself up. He declined transport to the ER yesterday however today he was unable to even get out of bed and he acquiesced and came in as he was feeling short of breath. In the ED he was found once again to have worsening renal function with profound metabolic acidosis (pH 7.176, bicarb 5.2). Chest x-ray showed new bilateral posterior infrahilar opacities which could be edema, atelectasis, or pneumonia. Brain CT showed small age-indeterminate lacunar infarcts at the head of the left caudate nucleus and sinus disease. Transfer was initiated to [facility] and recommendations were given by the transplant team to start broad-spectrum antibiotics and a sodium bicarbonate drip. He is being admitted to the ICU for further care and close monitoring pending bed availability at [facility]. At the time my evaluation he complains of generalized weakness, chills, and shortness of breath. He denies fever, sore throat, significant cough, chest pain, vomiting, and diarrhea. He also denies vertigo, visual changes, facial droop, difficulty speaking and swallowing, and focal weakness. Review of Systems Review of Systems: Twelve systems were reviewed and are negative except for as per HPI. [facility] Past Medical History Medical History (Updated 07/07/22 @ 00:34 by Debi Villatoro PA-C) Arthritis of both wrists B12 deficiency Benign prostatic hyperplasia Chronic anemia Chronic kidney disease, stage 4 (severe) Gout Hypertension Surgical History Surgical History (Updated 07/07/22 @ 00:00 by Debi Villatoro PA-C) History of cataract extraction History of cholecystectomy History of intestinal bypass History of renal transplant History of tonsillectomy Family History Family History (Updated 07/06/22 @ 23:54 by Debi Villatoro PA-C) Other Hypertension Social History Social History (Updated 07/06/22 @ 23:55 by Debi Villatoro PA-C) Social History: Surrogate medical decision maker: Sybil Carlos, cousin. Code status: Full code, considering DNR/DNI. Smoking status: Former smoker Second hand tobacco smoke exposure: No Alcohol intake: never Substance use: never Lack of Transportation: No Lack of Food: Never True Current Housing: I Have Housing Concerned About Future Housing: No Difficulty Paying Gas/Electric Bills: No Difficulty Paying for Meds: No Currently Unemployed: No Education: High School Diploma/GED Difficulty w/ Childcare or Family Care: No Additional living arrangements comments: The patient lives in his own home in [place]. 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 Spiritual care concerns: No Meds Home Medications and Allergies Home Medications Medication Instructions Recorded Confirmed Type finasteride 5 mg tablet 5 mg PO DAILY 05/13/22 07/06/22 History mycophenolate sodium 360 mg 360
--- NOTE | 2022-07-06 20:00 | ADMGEN ---
This patient, Eusebio Brooks, was admitted to Intensive Care Unit-10 at 1999 on 07/06/2022. Patient/family oriented to hospital policies and general routines including ID bracelet, bed and alarms, visiting hours, pain management, procedures, bathroom and other care routines, personal items, smoking policy, room service/diet, and visiting hours. Information on how to activate the Rapid Response Team has been discussed. Patient/Family are encouraged to report perceived risks to care and to ask questions if they do not understand what they are told or what they should do.
[2022-07-06] MEDS: SODIUM BICARBONATE 8.4% 150 MEQ in DEXTROSE 5% 1,000 ML 950 ML 50 MEQ IV CONT (20:14)
[2022-07-06 20:29] LABS: Alveolar/Arterial O2 Gradient 90.9 mmHg; Base Excess ABG -17.1 mEq/l (+/-2.0); Carboxyhemoglobin 0.2 % THb (0-2.0); Fractional Inspired Oxygen 28 %; HCO3 ABG 8.3 mEq/l (22.0-26.0); Methemoglobin ABG 0.2 %THb (0-1.5); Oxygen Content ABG 10.9 %vol (16.0-22.0); Oxygen Saturation ABG 95.4 % (95.0-100.0); Oxyhemoglobin 91.2 % THb (90.0-100.0); PO2 ABG 85.9 mmHg (80.0-100.0); PO2 FiO2 Ratio Arterial Blood 3.07 %; Reduced Hemoglobin 8.4 %THb (0-5.0); Total Hemoglobin 8.4 g/dL (12.0-18.0)
[2022-07-06 20:30] LABS: Device NASAL CANNULA; PCO2 ABG 19.4 mmHg (35.0-45.0); Site Drawn RIGHT BRACHIAL; pH ABG 7.251 (7.350-7.450)
[2022-07-06 21:27] LABS: Anion Gap 13 mmol/L (8-16); Blood Urea Nitrogen 73 mg/dL (9-20); Calcium 6.6 mg/dL (8.4-10.2); Carbon Dioxide 8 mmol/L (22-30); Chloride 117 mmol/L (98-107); Estimated CRCL calculation 9 ml/min; Estimated Glomerular Filt Rate 11; Glucose 94 mg/dL (65-110); Potassium 2.6 mmol/L (3.4-5.0); Sodium 138 mmol/L (137-145)
[2022-07-06] MEDS: POTASSIUM CHLORIDE 20 MEQ PACKET (FOR LIQUID) 40 MEQ PO (22:23)
[2022-07-07] VITALS (28 sets, daily range): BP systolic 81–132; BP diastolic 47–74; PULSE 77–95; RESP 21–32; TEMP 36–37.3; O2SAT 97–100; BMI 20.3
--- NOTE | 2022-07-07 00:30 | P.PCNBED_ITS ---
Procedures Central Line Placement Right Femoral: Central Line Date: 07/07/22 Central Line Time: 00:30 Consent: I have discussed with the patient and/or surrogate, the non-emergent placement of a central venous catheter, including its clinical necessity/indication and associated potential risks and complications. The patient and/or surrogate understand(s) and acknowledge(s) the need to proceed with central venous catheter insertion as an important element of the patient's clinical management. Time Out Performed: Yes Patient Position: supine Patient placed on monitor/pulse ox: Yes Provider Prep: mask, sterile gown, sterile gloves, Max. sterile barrier precautions, cap and hand hygiene with conventional soap/water or alcohol based hand rub Central line prep: 2% Chlorhexidine scrub Local anesthesia used: lidocaine 1% Amount of anesthesia used (ml): 5 Sterile US Technique with sterile gel/sterile probe covers: Yes Central line lumen inserted: triple Sammar[place]: 7 Length (cm): 20 Post Procedure: sutured in place, good blood return, all ports aspirated, flushed, capped, transparent dressing, antimicrobial product, securement product and aseptic technique maintained throughout procedure Post procedure x-ray: other (n/a with femoral placement) Complications: none
[2022-07-07] MEDS: NOREPINEPHRINE 8 MG/D5W 250 ML 8 MG/250 ML BAG 9.38 MG IV CONT (00:45)
--- NOTE | 2022-07-07 00:45 | ECHO_ITS ---
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 Summary 1. Normal left ventricular size with mild left ventricular hypertrophy. Good systolic function of all segments with no segmental wall motion abnormalities. Ejection fraction of 65%. Normal diastolic function. 2. Left atrial chamber dimension is mildly enlarged. 3. There is mild tricuspid valve regurgitation. 4. Mild pulmonary hypertension, estimated pulmonary arterial systolic pressure is 41 mmHg. 5. No evidence of intracardiac shunting during normal respiration Valsalva maneuver by bubble. 6. Normal sinus rhythm. 7. Somewhat technically difficult study. Left Ventricle Left ventricular chamber dimension is normal. Left ventricular systolic function is normal, estimated at 60-65%. There is mildly increased left ventricular wall thickness. Left ventricular septal wall motion is normal. The left ventricular diastolic function is normal. Right Ventricle Right ventricular chamber dimension is normal. Right ventricular systolic function is normal. Left Atria Left atrial chamber dimension is mildly enlarged. Right Atria Right atrial chamber dimension is normal. Atrial Septum Intact interatrial septum visualized by agitated saline imaging. Aortic Valve The aortic valve is trileaflet. There is no aortic valve sclerosis. There is no aortic valve stenosis. There is no aortic valve regurgitation. Pulmonic Valve The pulmonic valve is normal. There is no pulmonic valve stenosis. There is no pulmonic regurgitation. Mitral Valve The mitral valve has normal leaflets. There is no mitral valve stenosis. There is trace mitral valve regurgitation. Tricuspid Valve The tricuspid valve leaflets are normal. There is no significant tricuspid valve stenosis. There is mild tricuspid valve regurgitation. Mild pulmonary hypertension, estimated pulmonary arterial systolic pressure is 41 mmHg. Pericardium/Pleural The pericardium appears normal. There is no pericardial effusion. Inferior Vena Cava Normal inferior vena cava with >50% collapse upon inspiration consistent with Empty right atrial pressure, 10 mmHg. Aorta The aortic root size at the sinus of Valsalva is normal. The prox ascending aorta size is borderline dilated. Left Ventricular Outflow Tract Name Value Normal LVOT 2D LVOT Diameter 2.0 cm LVOT Doppler LVOT Peak Gradient 5 mmHg LVOT Mean Gradie
[2022-07-07 01:00] LABS: Magnesium 1.4 mg/dL (1.6-2.3)
[2022-07-07] MEDS: KCL 40 MEQ/WATER 100 ML 100 ML 25 ML IVPB (01:14)
[2022-07-07 01:45] LABS: Creatinine Urine 130.9 mg/dL
[2022-07-07 01:55] LABS: Sodium Urine Random 16 meq/L
[2022-07-07] MEDS: MAGNESIUM SULF 2 GM/WATER 50ML 2 GM/50 ML BAG IVPB (02:01)
[2022-07-07] MEDS: HYDROCORTISONE SODIUM SUCCINATE 100 MG/2 ML VIAL IV PUSH ×3 (02:01→17:44)
[2022-07-07] MEDS: CALCIUM GLUC 2,000 MG/NS 100ML 2,000 MG/100 ML BAG 100 MG IVPB (02:02)
[2022-07-07 05:34] LABS: Base Excess ABG -15.7 mEq/l (+/-2.0); Carboxyhemoglobin 0.1 % THb (0-2.0); Fractional Inspired Oxygen 28 %; HCO3 ABG 9.2 mEq/l (22.0-26.0); Methemoglobin ABG 0.2 %THb (0-1.5); Oxygen Content ABG 10.8 %vol (16.0-22.0); Oxyhemoglobin 91.3 % THb (90.0-100.0); PO2 ABG 88.3 mmHg (80.0-100.0); PO2 FiO2 Ratio Arterial Blood 3.15 %; Reduced Hemoglobin 8.4 %THb (0-5.0); Total Hemoglobin 8.3 g/dL (12.0-18.0); pH ABG 7.286 (7.350-7.450)
[2022-07-07 05:35] LABS: PCO2 ABG 19.8 mmHg (35.0-45.0); Site Drawn RIGHT BRACHIAL
[2022-07-07 05:36] LABS: Device NASAL CANNULA
[2022-07-07] MEDS: CENTRAL LINE FLUSH 10 ML IV PUSH ×4 (06:12→21:20)
[2022-07-07 06:20] LABS: Basophils Absolute Auto 0.1 K/mm3 (0.0-0.1); Basophils Percent Auto 0.8 % (0.2-1.2); Hematocrit 24.6 % (42.0-52.0); Hemoglobin 8.2 g/dL (14.0-18.0); Immature Granulocyte Absolute 0.06 K/mm3 (0.00-0.031); Immature Granulocyte Percent A 0.7 % (0-0.5); Immature Platelet Fraction Pct 5.4 % (0.9-11.2); Lymphocytes Absolute Auto 0.06 K/mm3 (0.9-3.2); Lymphocytes Percent Auto 0.7 % (18.3-44.2); Mean Corpuscular HGB Conc 33.3 g/dl (32-36); Mean Corpuscular Hemoglobin 29.3 pg (26-34); Mean Corpuscular Volume 87.9 fl (80-100); Monocytes Absolute Auto 0.2 K/mm3 (0.1-0.6); Monocytes Percent Auto 2.7 % (2.6-8.5); Neutrophils Absolute Auto 8.3 K/mm3 (1.3-6.7); Neutrophils Percent Auto 95.1 % (45.5-73.1); Platelet Count Result 30 k/mm3 (150-375); Red Cell Distribution Width 17.3 % (11.5-14.5); White Blood Count 8.7 K/mm3 (4.5-10.0)
[2022-07-07 06:25] LABS: Anion Gap 12 mmol/L (8-16); Blood Urea Nitrogen 73 mg/dL (9-20); Calcium 6.9 mg/dL (8.4-10.2); Carbon Dioxide 9 mmol/L (22-30); Chloride 121 mmol/L (98-107); Estimated CRCL calculation 11 ml/min; Estimated Glomerular Filt Rate 12; Glucose 85 mg/dL (65-110); Magnesium 1.9 mg/dL (1.6-2.3); Potassium 3.2 mmol/L (3.4-5.0); Sodium 142 mmol/L (137-145)
[2022-07-07 07:31] LABS: Burr Cells 2+ (NORMAL); Hypochromasia 1+ (NORMAL); Ovalocytes 1+ (NORMAL); Platelet Estimate Decreased (Adequate)
[2022-07-07 07:32] LABS: Anisocytosis 1+ (NORMAL); Poikilocytosis 1+ (NORMAL)
[2022-07-07 07:44] LABS: Cortisol Baseline > 123.00 ug/dL
[2022-07-07 08:04] LABS: Schistocytes None Seen (NORMAL)
--- NOTE | 2022-07-07 09:09 | WPDCNINT ---
Assessment and Plan Assessment and plan (1) Shock: Code(s): R57.9 - Shock, unspecified Status: Acute Assessment and Plan: Patient presented with generalized weakness, acute on chronic kidney disease, bilateral infiltrates, hypovolemia. -in the ED patient was given adequate IV fluids, 30 mL/kilogram of body weight -started on bicarb infusion recommended by renal transplant team at [facility] -shows right femoral central line was inserted -patient currently on Levophed, maintain MAP > 65 mmHg at all times quit end organ perfusion -patient started on ceftriaxone azithromycin and vancomycin in the ER, will switch ceftriaxone to cefepime pseudomonal coverage in immunosuppressed patient -started on stress dose steroids -07/06/2022 blood growing Gram-negative bacilli 08/26 bottles -07/06/2022 urine cultures have been obtained and pending (2) Pneumonia: Code(s): J18.9 - Pneumonia, unspecified organism Status: Acute Assessment and Plan: Chest x-ray shows new bilateral posterior perihilar infiltrates -continue antibiotics as above -discussed with patient regarding intubation if his respiratory status worsens, he is agreeable. -will add bronchodilators (3) Acute on chronic renal failure: Code(s): N17.9 - Acute kidney failure, unspecified; N18.9 - Chronic kidney disease, unspecified Status: Acute Assessment and Plan: Acute on chronic kidney disease could be related to immunosuppression medications, steroids, decreased p.o. intake -patient has had renal transplant and is followed at [facility], they recommended starting bicarb infusion -currently on sodium bicarbonate infusion at 75 mL/hour, will give additional bicarb push -will give albumin for volume expansion -urine sodium was reflective of prerenal picture, but his lungs sound coarse chest x-ray has been ordered, will give additional IV fluids pending chest x-ray -nephrology has been consulted -renal ultrasound was done and report is pending -continue to monitor urine output, renal function electrolytes (4) Chronic anemia: Code(s): D64.9 - Anemia, unspecified Status: Acute Assessment and Plan: Stable hemoglobin, will continue to monitor (5) Electrolyte abnormality: Code(s): E87.8 - Other disorders of electrolyte and fluid balance, not elsewhere classified Status: Acute Assessment and Plan: Low potassium levels will replace (6) Metabolic acidosis: Code(s): E87.20 - Acidosis, unspecified Status: Acute Assessment and Plan: Severe metabolic acidosis on admission -multifactorial but most likely related to uremia and/or medications -continue bicarb infusion (7) Thrombocytopenia: Code(s): D69.6 - Thrombocytopenia, unspecified Status: Acute Assessment and Plan: Thrombocytopenia likely related to septic shock, Gram-negative bacteremia -schistocytes are negative, TTP unlikely -will discuss with Nephrology -will transfuse 1 unit of platelets as his platelet counts are 30 K Plan DVT prophylaxis: SCDs, no per chemoprophylaxis due to thrombocytopenia Stress ulcer prophylaxis: Protonix Nutrition: Heart healthy diet Code Status: Full code Critical Care Time Spent: 51 minutes Due to a high probability of clinically significant, life threatening deterioration, the patient required my highest level of preparedness to intervene emergently and I personally spent this critical care time directly and personally managing the patient. This critical care time included obtaining a history; examining the patient; pulse oximetry; ordering and review of studies; arranging urgent treatment with development of a management plan; evaluation of patient's response to treatment; frequent reassessment; and discussions with other providers. It was exclusive of separately billable procedures and treating other patients and teaching time. Please see Assessment and Plan sect
[2022-07-07] MEDS: SODIUM BICARBONATE 8.4% 50 MEQ/50 ML SYRINGE IV PUSH (09:38)
[2022-07-07] MEDS: PANTOPRAZOLE SODIUM IV 40 MG VIAL IV PUSH (09:39)
[2022-07-07] MEDS: PYRIDOXINE HCL 50 MG TABLET PO (09:40)
[2022-07-07] MEDS: POTASSIUM CHLORIDE 20 MEQ TABLET 40 MEQ PO (09:40)
[2022-07-07] MEDS: TAMSULOSIN HCL 0.4 MG CAPSULE 0.8 MG PO (09:40)
[2022-07-07] MEDS: FINASTERIDE 5 MG TABLET PO (09:41)
[2022-07-07] MEDS: SODIUM CHLORIDE 0.9% IV 250 ML 30 ML IV CONT (09:46)
[2022-07-07] MEDS: ALBUMIN HUMAN 25% 25 GM/100 ML 100 ML IVPB ×4 (09:46→23:59)
--- NOTE | 2022-07-07 13:08 | P.CONNP_ITS ---
Assessment and Plan Assessment and plan (1) BRIAN (acute kidney injury): Code(s): N17.9 - Acute kidney failure, unspecified Status: Acute Assessment and Plan: * suspect multifactorial etiology * infection/sepsis * hemodynamic instability * prerenal factors * medications * on bicarb IVFs resuscitation at this time * IV albumin for volume expansion * follow-up on renal ultrasound * urine electrolytes noted * follow repeat labs and UOP (2) Chronic kidney disease, stage 4 (severe): Code(s): N18.4 - Chronic kidney disease, stage 4 (severe) Status: Acute Assessment and Plan: * baseline creatinine reported to be 3.7mg/d but came down to 3.1mg/dl on last hospitalization * due to chronic allograft nephropathy * follows with [facility] transplant team (3) Status post kidney transplant: Code(s): Z94.0 - Kidney transplant status Status: Chronic Assessment and Plan: * as noted by #2 * continue immunosuppression medications as able (4) Shock: Code(s): R57.9 - Shock, unspecified Status: Acute Assessment and Plan: * as noted by weakness, BRIAN on CKD, inflitrates on CXR, and hypovolemia * central access in place * on bicarb fluids and vasopressor therapy (levophed) * blood culture with GNB -- identification pending * on stress dose steroids * continue broad spectrum antibiotics (5) Pneumonia: Code(s): J18.9 - Pneumonia, unspecified organism Status: Acute Assessment and Plan: * CXR with bilateral inflitrates * follow respiratory status closely * on antibiotics as noted (6) Chronic anemia: Code(s): D64.9 - Anemia, unspecified Status: Chronic Assessment and Plan: * likely due to CKD and current acute illness * follow trend of H/H (7) Metabolic acidosis: Code(s): E87.20 - Acidosis, unspecified Status: Acute Assessment and Plan: * quite severe metabolic acidosis on admission * due to several issues but most likely related to uremia and/or medications * continue bicarb infusion long extensive discussion with the patient regarding his worsening renal function in the context of sepsis / infection and severe metabolic acidosis with my concerns noted to him that he may require renal replacement therapy /dialysis in effort rate to stabilize his overall condition. He seemed to voice understanding. Will continue to follow. History of Present Illness Reason for Consult Consult date: 07/07/22 Reason for consult: acute renal failure (on chronic kidney disease) Chief Complaint Chief complaint: Pneumonia/Metabolic Acidosis/Acute on Chronic Rosi History of Present Illness Narrative: The patient is a 76-year-old male with a past medical history as outlined below who presented to [facility] Emergency room with complaints of generalized weakness and a fall. It should be noted the patient was hospitalized here about a month and a half ago for similar symptoms and at that time his overall condition improved with gentle IV fluid hydration and supportive therapy. Nevertheless, he presented once again to [facility] ER with similar symptoms. I am unclear if the patient ever followed up with [place] transplant team following his last discharge from [facility] for ongoing management of his chronic medical issues and problems. Workup and evaluation in emergency room demonstrated the patient to be hemodynamically unstable and routine blood tests demonstrated a severe metabolic aci
--- NOTE | 2022-07-07 13:08 | PM.CNNEP ---
Assessment and Plan Assessment and plan (1) BRIAN (acute kidney injury): Code(s): N17.9 - Acute kidney failure, unspecified Status: Acute Assessment and Plan: suspect multifactorial etiology infection/sepsis hemodynamic instability prerenal factors medications on bicarb IVFs resuscitation at this time IV albumin for volume expansion follow-up on renal ultrasound urine electrolytes noted follow repeat labs and UOP (2) Chronic kidney disease, stage 4 (severe): Code(s): N18.4 - Chronic kidney disease, stage 4 (severe) Status: Acute Assessment and Plan: baseline creatinine reported to be 3.7mg/d but came down to 3.1mg/dl on last hospitalization due to chronic allograft nephropathy follows with [facility] transplant team (3) Status post kidney transplant: Code(s): Z94.0 - Kidney transplant status Status: Chronic Assessment and Plan: as noted by #2 continue immunosuppression medications as able (4) Shock: Code(s): R57.9 - Shock, unspecified Status: Acute Assessment and Plan: as noted by weakness, BRIAN on CKD, inflitrates on CXR, and hypovolemia central access in place on bicarb fluids and vasopressor therapy (levophed) blood culture with GNB -- identification pending on stress dose steroids continue broad spectrum antibiotics (5) Pneumonia: Code(s): J18.9 - Pneumonia, unspecified organism Status: Acute Assessment and Plan: CXR with bilateral inflitrates follow respiratory status closely on antibiotics as noted (6) Chronic anemia: Code(s): D64.9 - Anemia, unspecified Status: Chronic Assessment and Plan: likely due to CKD and current acute illness follow trend of H/H (7) Metabolic acidosis: Code(s): E87.20 - Acidosis, unspecified Status: Acute Assessment and Plan: quite severe metabolic acidosis on admission due to several issues but most likely related to uremia and/or medications continue bicarb infusion long extensive discussion with the patient regarding his worsening renal function in the context of sepsis / infection and severe metabolic acidosis with my concerns noted to him that he may require renal replacement therapy /dialysis in effort rate to stabilize his overall condition. He seemed to voice understanding. Will continue to follow. History of Present Illness Reason for Consult Consult date: 07/07/22 Reason for consult: acute renal failure (on chronic kidney disease) Chief Complaint Chief complaint: Pneumonia/Metabolic Acidosis/Acute on Chronic Rosi History of Present Illness Narrative: The patient is a 76-year-old male with a past medical history as outlined below who presented to [facility] Emergency room with complaints of generalized weakness and a fall. It should be noted the patient was hospitalized here about a month and a half ago for similar symptoms and at that time his overall condition improved with gentle IV fluid hydration and supportive therapy. Nevertheless, he presented once again to [facility] ER with similar symptoms. I am unclear if the patient ever followed up with [place] transplant team following his last discharge from [facility] for ongoing management of his chronic medical issues and problems. Workup and evaluation in emergency room demonstrated the patient to be hemodynamically unstable and routine blood tests demonstrated a severe metabolic acidosis which was confirmed by ABG. His CBC showed denied elevated white blood cell count of 15.4 as well as a platelet count of 53 and his known chronic anemia. Chemistry was significant for hypokalemia, a CO2 of less than 5, normal CPK as well as LFTs but elevated CRP. His UA was suggestive of a urinary tract infection and influenza a/B as well as COVID-19 and RSV testing was negative. He also had acute kidney injury on top of his baseline kid
[2022-07-07] MEDS: NOREPINEPHRINE 8 MG/D5W 250 ML 8 MG/250 ML BAG 15 MG IV CONT (15:49)
[2022-07-07 16:16] LABS: Anion Gap 10 mmol/L (8-16); Blood Urea Nitrogen 74 mg/dL (9-20); Carbon Dioxide 12 mmol/L (22-30); Chloride 118 mmol/L (98-107); Estimated CRCL calculation 11 ml/min; Estimated Glomerular Filt Rate 12; Glucose 95 mg/dL (65-110); Potassium 3.2 mmol/L (3.4-5.0); Sodium 140 mmol/L (137-145)
[2022-07-07] MEDS: IPRATROPIUM BR 0.02% INH SOLN 0.5 MG/2.5 ML VIAL INHALATION (20:00)
[2022-07-07] MEDS: LEVALBUTEROL NEB 1.25 MG/3 ML 0.63 MG INHALATION (20:27)
[2022-07-07] MEDS: SODIUM BICARBONATE 8.4% 150 MEQ in DEXTROSE 5% 1,000 ML 950 ML 75 MEQ IV CONT (21:19)
[2022-07-08] VITALS (33 sets, daily range): BP systolic 110–127; BP diastolic 48–76; PULSE 72–100; RESP 20–32; TEMP 36.2–36.9; O2SAT 93–100
[2022-07-08] MEDS: HYDROCORTISONE SODIUM SUCCINATE 100 MG/2 ML VIAL IV PUSH ×3 (01:45→17:35)
[2022-07-08] MEDS: LEVALBUTEROL NEB 1.25 MG/3 ML 0.63 MG INHALATION ×4 (03:44→22:12)
[2022-07-08] MEDS: IPRATROPIUM BR 0.02% INH SOLN 0.5 MG/2.5 ML VIAL INHALATION ×4 (03:44→22:11)
[2022-07-08] MEDS: CENTRAL LINE FLUSH 10 ML IV PUSH ×4 (05:55→21:47)
[2022-07-08 06:46] LABS: Immature Platelet Fraction Pct 4.7 % (0.9-11.2); Mean Corpuscular HGB Conc 34.1 g/dl (32-36); Mean Platelet Volume 11.7 fl (7.4-10.4); Red Blood Count 1.93 M/mm3 (4.6-6.20); Red Cell Distribution Width 16.8 % (11.5-14.5); White Blood Count 19.4 K/mm3 (4.5-10.0)
[2022-07-08 06:51] LABS: Vancomycin Random 7.2 ug/mL (10-20)
[2022-07-08 07:08] LABS: Hematocrit 16.4 % (42.0-52.0); Hemoglobin 5.6 g/dL (14.0-18.0)
[2022-07-08 07:09] LABS: Platelet Count Result 23 k/mm3 (150-375)
[2022-07-08 07:17] LABS: Anion Gap 13 mmol/L (8-16); Blood Urea Nitrogen 74 mg/dL (9-20); Calcium 6.9 mg/dL (8.4-10.2); Carbon Dioxide 12 mmol/L (22-30); Chloride 113 mmol/L (98-107); Estimated CRCL calculation 12 ml/min; Estimated Glomerular Filt Rate 13; Glucose 106 mg/dL (65-110); Magnesium 1.7 mg/dL (1.6-2.3); Phosphorus 2.4 mg/dL (2.5-4.5); Potassium 2.6 mmol/L (3.4-5.0); Sodium 138 mmol/L (137-145)
[2022-07-08] MEDS: POTASSIUM CHLORIDE 20 MEQ PACKET (FOR LIQUID) 40 MEQ PO (08:28)
[2022-07-08] MEDS: MAGNESIUM SULF 2 GM/WATER 50ML 2 GM/50 ML BAG IVPB (08:28)
[2022-07-08] MEDS: SODIUM BICARBONATE 8.4% 50 MEQ/50 ML SYRINGE 100 MEQ IV PUSH (08:28)
[2022-07-08] MEDS: TAMSULOSIN HCL 0.4 MG CAPSULE 0.8 MG PO (08:29)
[2022-07-08] MEDS: PANTOPRAZOLE SODIUM IV 40 MG VIAL IV PUSH ×2 (08:29→20:36)
[2022-07-08] MEDS: FINASTERIDE 5 MG TABLET PO (08:29)
[2022-07-08] MEDS: PYRIDOXINE HCL 50 MG TABLET PO (08:29)
[2022-07-08] MEDS: POTASSIUM CHLORIDE 20 MEQ TABLET.ER PO (08:29)
[2022-07-08] MEDS: CALCIUM GLUC 2,000 MG/NS 100ML 2,000 MG/100 ML BAG 100 MG IVPB (08:41)
[2022-07-08] MEDS: KCL 40 MEQ/WATER 100 ML 100 ML 25 ML IVPB ×2 (08:42→21:46)
[2022-07-08 08:44] LABS: Platelet Count Result 20 k/mm3 (150-375)
[2022-07-08 08:45] LABS: Prothrombin Time 21.7 Seconds (11.1-14.7)
[2022-07-08 08:46] LABS: Magnesium 1.5 mg/dL (1.6-2.3)
[2022-07-08 08:47] LABS: Fibrinogen 319 mg/dl (215-510); Partial Thromboplastin Time 49.9 SECONDS (22.3-36.8)
[2022-07-08 09:29] LABS: D Dimer 6.11 ug/mL (<0.48)
[2022-07-08] MEDS: SODIUM CHLORIDE 0.9% IV 250 ML 30 ML IV CONT (11:51)
[2022-07-08] MEDS: SODIUM BICARBONATE 8.4% 150 MEQ in DEXTROSE 5% 1,000 ML 950 ML 75 MEQ IV CONT (11:55)
--- NOTE | 2022-07-08 12:04 | PCFNICU ---
ICU Rounding Note: Pt current nutrition is Heart Healthy. Last recorded weight is 66.2 kg. Bowel Motility:07/08-diarrhea Labs Reviewed: PO4 2.4, K 2.6,GFR 13, BUN 74, Cr 4.5,Hct 16.4,Hgb 5.6 Meds Noted:Cefepime, Protonix, Vancomycin Skin: Deep Tissue-back,Deep Tissue-Buttock. Additional Notes: Patient remains on heart healthy diet, oral intake 50-75% of meals. Protein Modular of Luis Alfredo BID for wound healing. Diet supplement of Ensure compact BID. Large amount of diarrhea today Cdiff pending. Following daily in ICU rounds. RD will monitor every 5 days.
--- NOTE | 2022-07-08 12:30 | PDONCCN ---
HPI - Date of Consult Date/Time: 07/08/22 12:30 Requesting Physician: Shmuel Santos MD Primary Care Provider: UNKNOWN,DOCTOR - Consult Narrative Reason for consult: Thrombocytopenia and normocytic anemia Narrative: Eusebio Brooks is a 76 year old male with history of kidney transplant 4 and half years ago at [facility] along with history of chronic kidney disease, hypertension BPH came into the hospital with generalized weakness. Patient denies any previous hematological disorders. He has been on immunosuppressive therapy for his kidney transplant for last 4 and half years duration. He denies any history of liver disease. He denies any bleeding but does have bruising in upper extremities. On admission his hemoglobin was 5.6. Platelet counts were low at 30,000. Other labs showed creatinine of 4.5 and potassium of 2.6. D-dimer was elevated at 6.1. PTT was 49.9 with INR of 2.0. CT head showed small indeterminate lacunar infarction. Chest x-ray showed airspace opacities in the mid and lower lung zone likely combination of pulmonary edema and pneumonia. Blood culture showed Klebsiella pneumonia. She was started on the thrombi axilla along with cefepime. He denies any melena hematochezia. He has been eating poorly and may have lost some weight recently. Review of Systems - Review of Systems All systems reviewed & are unremarkable except as noted in [facility] and [facility] Medical History: Medical History (Last Updated 07/07/22 @ 00:00 by Debi Villatoro PA-C) Arthritis of both wrists B12 deficiency Benign prostatic hyperplasia Chronic anemia Chronic kidney disease, stage 4 (severe) Gout Hypertension Surgical History: Surgical History (Last Updated 07/06/22 @ 23:54 by Debi Villatoro PA-C) History of cataract extraction History of cholecystectomy History of intestinal bypass History of renal transplant History of tonsillectomy Family History: Family History (Last Updated 07/06/22 @ 23:54 by Debi Villatoro PA-C) Other Hypertension - Social History Social History: Social History (Last Updated 07/06/22 @ 23:55 by Debi Villatoro PA-C) Alcohol Use: Alcohol intake: never Substance Use: Substance use: never Others: Spiritual care concerns: No Smoking Status: Smoking status: Former smoker Second hand tobacco smoke exposure: No Social Determinants of Health: Has the Lack of Transportation Kept You From Medical Appointments or From Getting Medications?: No Within the Past 12 Months, Were You Worried Whether Your Food Would Run Out Before You Got Money to Buy More?: Never True What is Your Housing Situation Today?: I Have Housing Are You Worried That in the Next 2 Months, You May Not Have Your Own Housing to Live In?: No Do You Have Trouble Paying Your Heating Or Electricity Bill?: No Do You Have Trouble Paying For Medicines?: No Are You Currently Unemployed and Looking for Work?: No Highest Level of Education Completed: High School Diploma/GED Do You Have Trouble With Childcare or the Care of a Family Member?: No Exam - Vital Signs Vital Signs - 24 hr 07/07/22 12:34 07/07/22 15:49 07/07/22 14:00 Temperature 37.2 C Pulse Rate 85 90 86 Respiratory Rate 26 H Blood Pressure 110/57 L 123/58 L Pulse Oximetry 100 Oxygen Delivery Oxygen Flow Rate 07/07/22 16:00 07/07/22 14:00 07/07/22 16:00 Temperature 36.9 C Pulse Rate 84 86 84 Respiratory Rate 24 H 21 H Blood Pressure 113/56 L 125/57 L Pulse Oximetry 99 100 Oxygen Delivery Oxygen Flow Rate 07/07/22 18:00 07/07/22 18:00 07/07/22 18:17 Temperature Pulse Rate 90 90 90 Respiratory Rate 25 H Blood Pressure 120/65 120/65 Pulse Oximetry 100 Oxygen Delivery Oxygen Flow Rate 07/07/22 16:00 07/07/22 17:42 07/07/22 18:46 Temperature Pulse Rate 84 95 90 Respiratory Rate 21 H Blood Pre
[2022-07-08 13:41] LABS: Iron < 10 ug/dL (49-181)
[2022-07-08 14:00] LABS: Percent Iron Saturation < 11 % (20-50)
--- NOTE | 2022-07-08 14:09 | WPDINTPN ---
Progress Note: A&P Assessment and Plan (1) Shock: Code(s): R57.9 - Shock, unspecified Status: Acute Assessment and Plan: Patient presented with generalized weakness, acute on chronic kidney disease, bilateral infiltrates, hypovolemia. -in the ED patient was given adequate IV fluids, 30 mL/kilogram of body weight -started on bicarb infusion recommended by renal transplant team at [facility] -shows right femoral central line was inserted -patient currently on Levophed, maintain MAP > 65 mmHg at all times quit end organ perfusion -continue cefepime, azithromycin and vancomycin -started on stress dose steroids -07/06/2022 blood growing Klebsiella, sensitive to cefepime -07/06/2022 urine cultures growing Klebsiella (2) Pneumonia: Code(s): J18.9 - Pneumonia, unspecified organism Status: Acute Assessment and Plan: Chest x-ray this morning shows Airspace opacities in the mid and lower lung zones, right worse than left with slight worsening on the right, likely a combination of pneumonia and pulmonary edema. Given the low platelet count and acute anemia, hemorrhage cannot be excluded. -continue antibiotics as above -discussed with patient regarding intubation if his respiratory status worsens, he is agreeable. -continue bronchodilators (3) Acute on chronic renal failure: Code(s): N17.9 - Acute kidney failure, unspecified; N18.9 - Chronic kidney disease, unspecified Status: Acute Assessment and Plan: Acute on chronic kidney disease could be related to immunosuppression medications, steroids, decreased p.o. intake -patient has had renal transplant and is followed at [facility], they recommended starting bicarb infusion -currently on sodium bicarbonate infusion at 75 mL/hour, will give additional bicarb push -will give albumin for volume expansion -urine sodium was reflective of prerenal picture, but his lungs sound coarse chest x-ray has been ordered, continue maintenance IV fluids -nephrology has been consulted -creatinine gradually improving with adequate urine output -07/07/2022: Renal ultrasound: Atrophy of the [place] right kidney and normal-appearing right pelvic transplant kidney. Increased parenchymal echogenicity of the left kidney, likely due to medical renal disease. -continue to monitor urine output, renal function electrolytes (4) Chronic anemia: Code(s): D64.9 - Anemia, unspecified Status: Acute Assessment and Plan: Hemoglobin dropped to 5.6 this morning will transferred 1 unit of packed RBCs, will repeat H&H post transfusion -consulted hematology, appreciate their evaluation and recommendations -iron panel and vitamin B12 and folic acid levels have been done on blood that is in the lab prior to blood transfusion -abdominal ultrasound to evaluate his liver and spleen per Hematology/Oncology (5) Electrolyte abnormality: Code(s): E87.8 - Other disorders of electrolyte and fluid balance, not elsewhere classified Status: Acute Assessment and Plan: Low potassium levels will replace (6) Metabolic acidosis: Code(s): E87.20 - Acidosis, unspecified Status: Acute Assessment and Plan: Severe metabolic acidosis on admission -multifactorial but most likely related to uremia and/or medications -continue bicarb infusion -will add p.o. bicarb tablets (7) Thrombocytopenia: Code(s): D69.6 - Thrombocytopenia, unspecified Status: Acute Assessment and Plan: Thrombocytopenia likely related to septic shock, Gram-negative bacteremia -schistocytes are negative, TTP unlikely -will discuss with Nephrology -1 unit platelets have been transfused on 07/07/2022 -will transfuse 1 more unit of platelets today on 07/08/2022 -glass robot operator is following the patient, check platelet antibodies Plan DVT prophylaxis: SCDs, no per chemoprophylaxis due to thrombocytopenia and anemia Stress ulcer prophylaxis: Protonix IV
[2022-07-08 14:49] LABS: Folic Acid 2.9 ng/mL (2.76->20)
[2022-07-08] MEDS: FUROSEMIDE INJ 40 MG/4 ML VIAL 20 MG IV PUSH ×2 (15:06→17:33)
--- NOTE | 2022-07-08 15:39 | PM.PNNEP ---
Progress Note: A&P Assessment and Plan (1) BRIAN (acute kidney injury): Code(s): N17.9 - Acute kidney failure, unspecified Status: Acute Assessment and Plan: suspect multifactorial etiology infection/sepsis hemodynamic instability prerenal factors medications on bicarb IVFs resuscitation at this time IV albumin for volume expansion renal ultrasound noted urine electrolytes noted follow repeat labs and UOP (2) Chronic kidney disease, stage 4 (severe): Code(s): N18.4 - Chronic kidney disease, stage 4 (severe) Status: Acute Assessment and Plan: baseline creatinine reported to be 3.7mg/d but came down to 3.1mg/dl on last hospitalization due to chronic allograft nephropathy follows with [facility] transplant team (3) Status post kidney transplant: Code(s): Z94.0 - Kidney transplant status Status: Chronic Assessment and Plan: as noted by #2 continue immunosuppression medications as outlined (4) Shock: Code(s): R57.9 - Shock, unspecified Status: Acute Assessment and Plan: as noted by weakness, BRIAN on CKD, inflitrates on CXR, and hypovolemia central access in place on bicarb fluids and vasopressor therapy (levophed) blood and urine culture with Klebsiella continue broad spectrum antibiotics (5) Pneumonia: Code(s): J18.9 - Pneumonia, unspecified organism Status: Acute Assessment and Plan: CXR with bilateral inflitrates follow respiratory status closely on antibiotics as noted (6) Chronic anemia: Code(s): D64.9 - Anemia, unspecified Status: Chronic Assessment and Plan: likely due to CKD and current acute illness PRBC transfusion per protocol follow trend of H/H (7) Metabolic acidosis: Code(s): E87.20 - Acidosis, unspecified Status: Acute Assessment and Plan: quite severe metabolic acidosis on admission due to several issues but most likely related to uremia and/or medications continue bicarb infusion Will continue to follow. Subjective Date/time seen: 07/08/22 15:39 Patient states he is feeling better since admission; weaned off levophed earlier this AM and urine output has picked up; low Hgb noted by AM labs so PRBC transfusion done today; remains on bicarb fluids given ongoing metabolic acidosis; stable hemodynamics at this time. Exam Narrative: General: frail ill appearing male in NAD Heart: normal S1 and S2; no rub Lungs: coarse breath sounds Abdomen: soft, nontender, nondistended, positive bowel sounds Extremities: no cyanosis or clubbing; trace edema Skin: multiple bruises and skin tears Objective Data Vital Signs Vital Signs: Vital Signs Temp Pulse Resp BP Pulse Ox O2 Del Method O2 Flow Rate 07/08/22 15:16 97.9 F 95 26 H 112/63 97 07/08/22 15:00 97.4 F L 100 25 H 114/64 96 07/08/22 14:33 98.2 F 86 25 H 122/60 100 07/08/22 12:05 97.7 F 89 30 H 115/76 100 07/08/22 14:09 87 24 H 07/08/22 14:00 98.2 F 86 25 H 122/60 100 07/08/22 13:59 86 25 H 07/08/22 12:00 91 07/08/22 13:07 97.5 F L 86 23 H 112/70 99 07/08/22 12:04 97.7 F 91 26 H 119/70 97 07/08/22 12:00 95 Nasal Cannula 2 07/08/22 11:50 97.8 F 93 29 H 117/59 L 95 07/08/22 10:00 82 07/08/22 08:00 86 07/08/22 10:00 98.0 F 86 22 H 111/54 L 97 07/08/22 08:00 95 Nasal Cannula 2 07/08/22 08:00 97.2 F L 88 26 H 120/48 L 95 07/08/22 09:30 84 25 H 07/08/22 09:21 87 24 H 07/08/22 06:00 88 28 H 113/59 L 93 07/08/22 06:00 88 07/08/22 04:00 98.5 F 87 30 H 122/63 100 07/08/22 04:00 87 07/08/22 04:00 95 Nasal Cannula 2 07/08/22 03:45 89 24 H 07/08/22 02:00 87 25 H 114/57 L 95 07/08/22 02:00 87 07/08/22 02:48 110/52 L 07/08/22 01:51 123/60 12
--- NOTE | 2022-07-08 15:39 | P.PNNP_ITS ---
Progress Note: A&P Assessment and Plan (1) BRIAN (acute kidney injury): Code(s): N17.9 - Acute kidney failure, unspecified Status: Acute Assessment and Plan: * suspect multifactorial etiology * infection/sepsis * hemodynamic instability * prerenal factors * medications * on bicarb IVFs resuscitation at this time * IV albumin for volume expansion * renal ultrasound noted * urine electrolytes noted * follow repeat labs and UOP (2) Chronic kidney disease, stage 4 (severe): Code(s): N18.4 - Chronic kidney disease, stage 4 (severe) Status: Acute Assessment and Plan: * baseline creatinine reported to be 3.7mg/d but came down to 3.1mg/dl on last hospitalization * due to chronic allograft nephropathy * follows with [facility] transplant team (3) Status post kidney transplant: Code(s): Z94.0 - Kidney transplant status Status: Chronic Assessment and Plan: * as noted by #2 * continue immunosuppression medications as outlined (4) Shock: Code(s): R57.9 - Shock, unspecified Status: Acute Assessment and Plan: * as noted by weakness, BRIAN on CKD, inflitrates on CXR, and hypovolemia * central access in place * on bicarb fluids and vasopressor therapy (levophed) * blood and urine culture with Klebsiella * continue broad spectrum antibiotics (5) Pneumonia: Code(s): J18.9 - Pneumonia, unspecified organism Status: Acute Assessment and Plan: * CXR with bilateral inflitrates * follow respiratory status closely * on antibiotics as noted (6) Chronic anemia: Code(s): D64.9 - Anemia, unspecified Status: Chronic Assessment and Plan: * likely due to CKD and current acute illness * PRBC transfusion per protocol * follow trend of H/H (7) Metabolic acidosis: Code(s): E87.20 - Acidosis, unspecified Status: Acute Assessment and Plan: * quite severe metabolic acidosis on admission * due to several issues but most likely related to uremia and/or medications * continue bicarb infusion Will continue to follow. Subjective Date/time seen: 07/08/22 15:39 Patient states he is feeling better since admission; weaned off levophed earlier this AM and urine output has picked up; low Hgb noted by AM labs so PRBC transfusion done today; remains on bicarb fluids given ongoing metabolic acidosis; stable hemodynamics at this time. Exam Narrative: General: frail ill appearing male in NAD Heart: normal S1 and S2; no rub Lungs: coarse breath sounds Abdomen: soft, nontender, nondistended, positive bowel sounds Extremities: no cyanosis or clubbing; trace edema Skin: multiple bruises and skin tears Objective Data Vital Signs Vital Signs: Vital Signs Temp Pulse Resp BP Pulse Ox O2 Del Method O2 Flow Rate 07/08/22 15:16 97.9 F 95 26 H 112/63 97 07/08/22 15:00 97.4 F L 100 25 H 114/64 96 07/08/22 14:33 98.2 F 86 25 H 122/60 100 07/08/22 12:05 97.7 F 89 30 H 115/76 100 07/08/22 14:09 87 24 H 07/08/22 14:00 98.2 F 86 25 H 122/60 100 07/08/22 13:59 86 25 H 07/08/22 12:00 91 07/08/22 13:07 97.5 F L 86 23 H 112/70 99 07/08/22 12:04 97.7 F 91 26 H 119/70 97 07/08/22 12:00 95 Nasal Cannula 2
--- NOTE | 2022-07-08 17:10 | PC.NURSE ---
Updated Dr. Shepard on patient's condinot. Pt has had 200ml of urine out since Lasix was given. Platelets are infused. Lungs remain coarse with crackles throughout. BP 112/60. New order for 20mg IVP Lasix x1
[2022-07-08] MEDS: SODIUM BICARBONATE TAB 650 MG TABLET PO (20:36)
[2022-07-08 20:52] LABS: Hemoglobin 7.2 g/dL (14.0-18.0)
[2022-07-08 20:56] LABS: Hematocrit 20.4 % (42.0-52.0)
[2022-07-08 21:03] LABS: Potassium 2.5 mmol/L (3.4-5.0)
[2022-07-08 22:33] LABS: IFOB Positive Control Positive; Immunochemical Fecal Occult Bl Positive (N)
[2022-07-08 23:11] LABS: Toxigenic C. Diff NEGATIVE (NEGATIVE)
[2022-07-09] VITALS (12 sets, daily range): BP systolic 104–118; BP diastolic 51–65; PULSE 66–95; RESP 20–29; TEMP 36.4–36.9; O2SAT 92–97
[2022-07-09] MEDS: IPRATROPIUM BR 0.02% INH SOLN 0.5 MG/2.5 ML VIAL INHALATION ×3 (00:58→13:34)
[2022-07-09] MEDS: LEVALBUTEROL NEB 1.25 MG/3 ML 0.63 MG INHALATION ×3 (00:59→13:34)
[2022-07-09] MEDS: SODIUM BICARBONATE 8.4% 150 MEQ in DEXTROSE 5% 1,000 ML 950 ML 75 MEQ IV CONT (01:45)
[2022-07-09] MEDS: HYDROCORTISONE SODIUM SUCCINATE 100 MG/2 ML VIAL IV PUSH ×2 (02:19→09:09)
[2022-07-09 05:22] LABS: Alveolar/Arterial O2 Gradient 107.1 mmHg; Base Excess ABG -5.6 mEq/l (+/-2.0); Carboxyhemoglobin 0.3 % THb (0-2.0); Fractional Inspired Oxygen 28 %; HCO3 ABG 17.8 mEq/l (22.0-26.0); Methemoglobin ABG 0.3 %THb (0-1.5); Oxygen Content ABG 8.7 %vol (16.0-22.0); Oxygen Saturation ABG 92.7 % (95.0-100.0); Oxyhemoglobin 88.6 % THb (90.0-100.0); PCO2 ABG 26.8 mmHg (35.0-45.0); PO2 ABG 60.9 mmHg (80.0-100.0); PO2 FiO2 Ratio Arterial Blood 2.17 %; Reduced Hemoglobin 10.8 %THb (0-5.0); pH ABG 7.441 (7.350-7.450)
[2022-07-09 05:23] LABS: Device NASAL CANNULA; Site Drawn RIGHT BRACHIAL; Total Hemoglobin 6.9 g/dL (12.0-18.0)
[2022-07-09] MEDS: CENTRAL LINE FLUSH 10 ML IV PUSH (05:36)
[2022-07-09 05:55] LABS: Basophils Absolute Auto 0.1 K/mm3 (0.0-0.1); Basophils Percent Auto 0.4 % (0.2-1.2); Eosinophils Percent Auto 0.1 % (0-4.4); Hemoglobin 7.1 g/dL (14.0-18.0); Immature Granulocyte Absolute 0.19 K/mm3 (0.00-0.031); Immature Granulocyte Percent A 0.7 % (0-0.5); Immature Platelet Fraction Pct 5.1 % (0.9-11.2); Lymphocytes Percent Auto 0.4 % (18.3-44.2); Mean Corpuscular HGB Conc 35.7 g/dl (32-36); Mean Corpuscular Hemoglobin 29.5 pg (26-34); Mean Corpuscular Volume 82.6 fl (80-100); Mean Platelet Volume 11.6 fl (7.4-10.4); Monocytes Absolute Auto 0.2 K/mm3 (0.1-0.6); Monocytes Percent Auto 0.9 % (2.6-8.5); Neutrophils Absolute Auto 25.1 K/mm3 (1.3-6.7); Neutrophils Percent Auto 97.5 % (45.5-73.1); Platelet Count Result 28 k/mm3 (150-375); Red Blood Count 2.41 M/mm3 (4.6-6.20); Red Cell Distribution Width 16.4 % (11.5-14.5); White Blood Count 25.8 K/mm3 (4.5-10.0)
[2022-07-09 05:56] LABS: Lactic Acid Reflex 0.9 mmol/L (0.7-2.0)
[2022-07-09 06:02] LABS: Alanine Aminotransferase 15 U/L (6-50); Albumin Level 2.5 g/dL (3.5-5.1); Alkaline Phosphatase 57 U/L (38-126); Anion Gap 11 mmol/L (8-16); Aspartate Amino Transferase 18 U/L (17-59); Bilirubin,Total 1.2 mg/dL (0.2-1.3); Blood Urea Nitrogen 76 mg/dL (9-20); Carbon Dioxide 18 mmol/L (22-30); Chloride 106 mmol/L (98-107); Estimated CRCL calculation 13 ml/min; Estimated Glomerular Filt Rate 14; Glucose 132 mg/dL (65-110); Magnesium 1.9 mg/dL (1.6-2.3); Phosphorus 2.6 mg/dL (2.5-4.5); Potassium 2.5 mmol/L (3.4-5.0); Sodium 135 mmol/L (137-145)
[2022-07-09] MEDS: POTASSIUM CHLORIDE 20 MEQ TABLET 40 MEQ PO (06:52)
[2022-07-09 07:29] LABS: Hematocrit 19.9 % (42.0-52.0)
[2022-07-09 07:30] LABS: Crenated RBC 1+ (NORMAL); Platelet Estimate Decreased (Adequate)
[2022-07-09 07:31] LABS: Schistocytes None Seen (NORMAL)
[2022-07-09] MEDS: FUROSEMIDE INJ 40 MG/4 ML VIAL 20 MG IV PUSH (09:08)
[2022-07-09] MEDS: POTASSIUM CHLORIDE 20 MEQ TABLET.ER PO (09:09)
[2022-07-09] MEDS: SODIUM BICARBONATE TAB 650 MG TABLET PO (09:09)
[2022-07-09] MEDS: FINASTERIDE 5 MG TABLET PO (09:09)
[2022-07-09] MEDS: PYRIDOXINE HCL 50 MG TABLET PO (09:09)
[2022-07-09] MEDS: PANTOPRAZOLE SODIUM IV 40 MG VIAL IV PUSH (09:09)
[2022-07-09] MEDS: TAMSULOSIN HCL 0.4 MG CAPSULE 0.8 MG PO (09:09)
--- NOTE | 2022-07-09 11:31 | PCFNICU ---
ICU Rounding Note: Pt current nutrition is Heart Healthy. Last recorded weight is 72 kg. Bowel Motility:+BM reported 07/09 Labs Reviewed:BUN 76, Cr 4.3,Na 135, Alb 2.5,Hct 19.6,Hgb 7.1 Meds Noted: Cefepime, Protonix, Vancomycin Skin: DT-Back, DT-buttock Additional Notes: Patient remains on heart healthy diet. Oral Intake 25-75% of meals. Protein Modular of Luis Alfredo BID for wound healing. Diet supplements of Ensure compact BID. Patient is drinking diet supplements. Cdiff-negative. Possible transfer to [facility]. Agree with diet orders. Following daily in ICU rounds. RD will monitor every 7 days.
--- NOTE | 2022-07-09 12:55 | WPDINTPN ---
Progress Note: A&P Assessment and Plan (1) Shock: Code(s): R57.9 - Shock, unspecified Status: Acute Assessment and Plan: Patient presented with generalized weakness, acute on chronic kidney disease, bilateral infiltrates, hypovolemia. -in the ED patient was given adequate IV fluids, 30 mL/kilogram of body weight -started on bicarb infusion recommended by renal transplant team at [facility] -shows right femoral central line was inserted -patient currently on Levophed, maintain MAP > 65 mmHg at all times quit end organ perfusion -continue cefepime, azithromycin and vancomycin (started on 07/07/2022) -started on stress dose steroids -07/06/2022 blood growing Klebsiella, sensitive to cefepime -07/06/2022 urine cultures growing Klebsiella -07/07/2022: Sputum culture growing staph aureus (2) Pneumonia: Code(s): J18.9 - Pneumonia, unspecified organism Status: Acute Assessment and Plan: Chest x-ray this morning shows Airspace opacities in the mid and lower lung zones, right worse than left with slight worsening on the right, likely a combination of pneumonia and pulmonary edema. Given the low platelet count and acute anemia, hemorrhage cannot be excluded. -continue antibiotics as above -discussed with patient regarding intubation if his respiratory status worsens, he is agreeable. -continue bronchodilators (3) Acute on chronic renal failure: Code(s): N17.9 - Acute kidney failure, unspecified; N18.9 - Chronic kidney disease, unspecified Status: Acute Assessment and Plan: Acute on chronic kidney disease could be related to immunosuppression medications, steroids, decreased p.o. intake -patient has had renal transplant and is followed at [facility], they recommended starting bicarb infusion -currently on sodium bicarbonate infusion at 75 mL/hour, will give additional bicarb push -will give albumin for volume expansion -urine sodium was reflective of prerenal picture, but his lungs sound coarse chest x-ray has been ordered, continue maintenance IV fluids -nephrology has been consulted -creatinine gradually improving with adequate urine output in response to diuresis -07/07/2022: Renal ultrasound: Atrophy of the pilot station right kidney and normal-appearing right pelvic transplant kidney. Increased parenchymal echogenicity of the left kidney, likely due to medical renal disease. -continue to monitor urine output, renal function electrolytes (4) Chronic anemia: Code(s): D64.9 - Anemia, unspecified Status: Acute Assessment and Plan: Hemoglobin dropped to 5.6 this morning will transferred 1 unit of packed RBCs, will repeat H&H post transfusion -consulted hematology, appreciate their evaluation and recommendations -iron panel and vitamin B12 and folic acid levels are within normal limits -07/08/2022: Abdominal ultrasound: Nonvisualized gallbladder, normal spleen, small bilateral pleural effusions (5) Electrolyte abnormality: Code(s): E87.8 - Other disorders of electrolyte and fluid balance, not elsewhere classified Status: Acute Assessment and Plan: Low potassium levels will replace (6) Metabolic acidosis: Code(s): E87.20 - Acidosis, unspecified Status: Acute Assessment and Plan: Severe metabolic acidosis on admission -multifactorial but most likely related to uremia and/or medications -discontinue bicarb infusion as CO2 on BMP is improving, also to limit fluids -continue p.o. bicarb tablets (7) Thrombocytopenia: Code(s): D69.6 - Thrombocytopenia, unspecified Status: Acute Assessment and Plan: Thrombocytopenia likely related to septic shock, Gram-negative bacteremia -schistocytes are negative, TTP unlikely -will discuss with Nephrology -1 unit platelets have been transfused on 07/07/2022 -will transfuse 1 more unit of platelets today on 07/08/2022 -transfer iron operator is following the patient, platelet antibodies
--- NOTE | 2022-07-09 13:24 | PM.TDS ---
Transfer Discharge Sum: Prov Provider Date of admission: 07/06/22 18:44 Primary care physician: UNKNOWN,DOCTOR Admitting clinician: Patrick Del Rosario MD Consults: 07/06/22 18:11 Consult to Physician Routine Comment: Consulting Provider: Eamon Shepard faculty i on call medical assistant/MD group to consult: jade Reason for consultation: pneumonia, metabolic acidosis, renal failure Has provider been notified: Yes 07/07/22 Care Coordination Consult Routine Comment: Reason for Consult:: Advanced Directives Wound/ET Consult Routine Reason for Consult:: pressure ulcer on coccyx, skin tears on bilateral arms 07/07/22 09:28 Consult to Physician Routine Comment: left message w office @ [phone] (, ) Consulting Provider: Melvin Busby faculty i on call medical assistant/MD group to consult: Nephrology Reason for consultation: Acute on chronic renal failure, renal transplant patient Has provider been notified: Yes 07/08/22 11:06 Consult to Physician Routine Comment: spoke w dr @ [phone] (, ) Consulting Provider: Aubrey Lyle faculty i on call medical assistant/MD group to consult: hematology/oncology Reason for consultation: anemia and thrombocytopenia Has provider been notified: Yes DS: Admitting Diagnosis Discharge Date 07/09/2022 Admitting Diagnosis generalized weakness DS: Discharge Diagnosis Discharge Diagnosis (1) Shock: Code(s): R57.9 - Shock, unspecified Status: Acute (2) Pneumonia: Code(s): J18.9 - Pneumonia, unspecified organism Status: Acute (3) Acute on chronic renal failure: Code(s): N17.9 - Acute kidney failure, unspecified; N18.9 - Chronic kidney disease, unspecified Status: Acute (4) Chronic anemia: Code(s): D64.9 - Anemia, unspecified Status: Acute (5) Electrolyte abnormality: Code(s): E87.8 - Other disorders of electrolyte and fluid balance, not elsewhere classified Status: Acute (6) Metabolic acidosis: Code(s): E87.20 - Acidosis, unspecified Status: Acute (7) Thrombocytopenia: Code(s): D69.6 - Thrombocytopenia, unspecified Status: Acute Transfer Discharge Sum: Med Medications Active and Home Medications: Home Medications finasteride 5 mg tablet 5 mg PO DAILY 05/13/22 [History Confirmed 07/06/22] mycophenolate sodium 360 mg tablet,delayed release 360 mg PO BID 05/13/22 [History Confirmed 07/06/22] prednisone 5 mg tablet 5 mg PO DAILY 05/13/22 [History Confirmed 07/06/22] pyridoxine (vitamin B6) 50 mg tablet 50 mg PO DAILY 05/13/22 [History Confirmed 07/06/22] tacrolimus 1 mg tablet,extended release 24 hr (Envarsus XR) 4 mg PO DAILY 05/13/22 [History Confirmed 07/06/22] tamsulosin 0.4 mg capsule 0.8 mg PO DAILY 05/13/22 [History Confirmed 07/06/22] potassium chloride 20 mEq tablet,extended release 20 meq PO DAILY #30 tabs 05/28/22 [Rx Confirmed 07/06/22] sodium bicarbonate 650 mg tablet 1,300 mg PO TIDWM 30 days #180 tabs 05/28/22 [Rx Confirmed 07/06/22] Active Medications Acetaminophen (Acetaminophen 325 Mg Tablet) 650 mg PO Q4H PRN PRN Reason: Mild Pain (1-3) or Fever Finasteride (Finasteride 5 Mg Tablet) 5 mg PO DAILY [facility] Last Admin: 07/09/22 09:09 Dose: 5 mg Hydrocortisone Sodium Succinate (Hydrocortisone Sodium Succinate 100 Mg/2 Ml Vial) 100 mg IV PUSH Q8H [facility] Last Admin: 07/09/22 09:09 Dose: 100 mg Azithromycin (Zithromax) 500 mg in 250 mls @ 250 mls/hr IVPB QPM [facility] Last Infusion: 07/08/22 18:59 Dose: Infused Vancomycin HCl (Vancomycin 1,250 Mg/D5w 250 Ml) 1,250 mg in 250 mls @ 200 mls/hr IVPB Q36H [facility] Last Infusion: 07/08/22 11:52 Dose: Infused Cefepime HCl (Maxipime 1 Gm/D5w 50 Ml) 1 gm in 50 mls @ 100 mls/hr IVPB Q12H [facility] Ipratropium Howe (Ipratropium Br 0.02% Inh Soln 0.5 Mg/2.5 Ml Vial) 0.5 mg INHALATION Q6HRT [facility] Last Admin: 07/09/22 08:27 Dose: 0.5 mg Levalbuterol HCl (Levalbuterol Neb 1.25 Mg/3 Ml) 0.63 mg INHALATION Q6HRT [facility] Last Admin: 07/09/22 08:28 Dose: 0.63 mg Nonformulary D
--- NOTE | 2022-07-09 14:27 | PC.NURSE ---
Pt transferred to [facility] room 8411 via [facility]. Family notified of transfer. Belongings sent with patient. Report called to RAIN Garcia @ [phone].
[2022-07-10 07:49] LABS: Tacrolimus Prograf 25.1 mcg/L
[2022-07-10 22:14] LABS: Mycoplasma IgM Antibody Titer 37 U/mL (<770)
[2022-07-12 11:08] LABS: Erythropoietin (EPO) 42.7 mIU/mL (2.6-18.5)
[2022-07-13 19:38] LABS: Legionella pneumophila Ag Ur Not Detected (Not Detected)
== END 2022-07-09 14:40 | disposition short-term general hospital (02) | DRG 871 ==
LOC: ANHED 15:49 → ANHICU 19:14
PROVIDERS: Internal Medicine; Internal Medicine Hematology & Oncology; Physician Assistant; Admitting Provider Internal Medicine; Emergency Provider Emergency Medicine; Visit Provider Internal Medicine
DX: A41.59 Other Gram-negative sepsis (principal); R65.21 Severe sepsis with septic shock; J18.9 Pneumonia, unspecified organism; I63.81 Other cerebral infarction due to occlusion or stenosis of small artery; N17.9 Acute kidney failure, unspecified; E87.20 Acidosis, unspecified; Z94.0 Kidney transplant status; I12.9 Hypertensive chronic kidney disease with stage 1 through stage 4 chronic kidney disease, or unspecified chronic kidney disease; A49.01 Methicillin susceptible Staphylococcus aureus infection, unspecified site; N18.9 Chronic kidney disease, unspecified; D64.9 Anemia, unspecified; R82.90 Unspecified abnormal findings in urine; E87.6 Hypokalemia; E87.8 Other disorders of electrolyte and fluid balance, not elsewhere classified; E83.51 Hypocalcemia; N40.0 Benign prostatic hyperplasia without lower urinary tract symptoms; D69.59 Other secondary thrombocytopenia; Z90.49 Acquired absence of other specified parts of digestive tract; Z98.49 Cataract extraction status, unspecified eye; Z87.891 Personal history of nicotine dependence
CPT/HCPCS: 36415; 36430; 36600; 51701; 70450; 71045; 71046; 76705; 76775; 80048; 80053; 80197; 80202; 81001; 82274; 82375; 82533; 82550; 82570; 82607; 82668; 82746; 82805; 83050; 83540; 83550; 83605; 83735; 84100; 84132; 84300; 84443; 85014; 85018; 85025; 85027; 85049; 85055; 85380; 85384; 85610; 85730; 86023; 86140; 86738; 86850; 86900; 86901; 86923; 87040; 87070; 87077; 87081; 87086; 87088; 87147; 87186; 87205; 87449; 87493; 87637; 87899; 93005; 93306; 94640; 96361; 96365; 96367; 99285; A9270; C1751; C9113; J0456; J0610; J0692; J0696; J0743; J1720; J1940; J2270; J2550; J3370; J3475; J3480; J7030; J7050; J7070; P9016; P9034; P9047